=== PATIENT | male | born 1950 | race Caucasian/White ===

== ENCOUNTER 2018-04-05 22:11 | Emergency (ER) | payer BC, OTHER ==
[~2018-04-05] VITALS: Ht 182.9 cm; Wt 100.0 kg
[~2018-04-05 22:11] MED LIST: CMD5 PO; CMD75 PO; DILT120T8 PO; FRS/40 PO; INSDGI SQ; NASAL SPRAY NAE; POTA-327 PO; [UNRECOGNIZED DRUG - CODE] PO
[2018-04-05 22:22] VITALS: TEMP 36.6; Ht 182.9 cm; Wt 100.0 kg
[2018-04-05] MEDS ORDERED: MoRPHine SULFATE 4 MG/ML 1 ML CARP\\VIAL IV STA (22:47)
[2018-04-05] MEDS ORDERED: MoRPHine SULFATE 4 MG/ML 1 ML CARP\\VIAL ONE (22:49)
[2018-04-05] MEDS ORDERED: MoRPHine SULFATE 10 MG/ML CARP/VIAL IV STA (23:08)
[2018-04-05] MEDS ORDERED: GLC500 PO (23:08)
[2018-04-05] MEDS ORDERED: DIAZEPAM INJ 5 MG/ML 2 ML CARP IV STA (23:08)
[2018-04-05] MEDS ORDERED: INSU1INJ32 SQ (23:09)
[2018-04-05] MEDS ORDERED: POTA10TA33 PO (23:09)
[2018-04-05] MEDS ORDERED: SIMV-151 PO (23:09)
[2018-04-05] MEDS ORDERED: LNX25 PO (23:09)
[2018-04-05] MEDS ORDERED: METO-217 PO (23:09)
[2018-04-05] MEDS ORDERED: CANA1TAB3 PO (23:09)
[2018-04-05] MEDS ORDERED: TPRSR/50 PO (23:09)
[2018-04-05] MEDS ORDERED: XRL20 PO (23:09)
[2018-04-05] MEDS ORDERED: DIAZEPAM 5 MG/ML INJ 10ML VIAL ONE (23:20)
[2018-04-06] MEDS ORDERED: MoRPHine SULFATE 10 MG/ML CARP/VIAL IV STA (03:20)
[2018-04-06] MEDS ORDERED: DIAZEPAM INJ 5 MG/ML 2 ML CARP IV STA (03:20)
[2018-04-06] MEDS ORDERED: MoRPHine SULFATE 2 MG/ML CARP ONE (03:24)
[2018-04-06] MEDS ORDERED: MoRPHine SULFATE 4 MG/ML 1 ML CARP\\VIAL ONE (03:24)
[2018-04-06] MEDS ORDERED: DIAZEPAM 5MG TAB PO STA (04:10)
[2018-04-06] MEDS ORDERED: DEXAMETHASONE **PF** INJ 10 MG/ML VIAL IV ONE (04:15)
[2018-04-06] MEDS ORDERED: OXYCODONE IR HOME PACK PO ONE (04:15)
[2018-04-06] MEDS ORDERED: METH4PAK PO (04:31)
[2018-04-06] MEDS ORDERED: DIAZ-165 PO (04:31)
[2018-04-06] MEDS ORDERED: OXYC-737 PO (04:31)
--- NOTE | 2018-04-06 04:31 | EMERGENCY ROOM VISIT NOTE ---
History Report prepared by Aashish: Linda Alvarado Under the Supervision of: Dr. Ti Tam M.D. First contact with patient: 23:00 Chief Complaint: BACK PAIN Stated Complaint: BACK PAIN, RIGHT SIDE, CAN'T WALK History of Present Illness The patient is a 68 year old male who presents to the Emergency Room with complaints of worsening back pain starting 2 days ago. The patient states that he has a history of back surgery done by Dr. Mejía. 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 He reports that he drove his side by side up the hill which was extremely bumpy to where they were getting out of the fence. He states that he did a little work on the fence before heading back down. He reports that the next morning, again the cows had gotten out. He reports that he then added a line of fence at the bottom so they couldn't crawl out from underneath. The patient states that he had just got done when the back pain came on suddenly worse. He states that it continued to get worse as the day went on. He reports that 6 hours ago the pain was so bad he was unable to walk after standing up. He states that the pain is along his lower right side and radiates towards the middle of his back. He states that the pain is worse with movement. He reports that he has had difficulty walking because his right leg has been weak from the pain. The patient notes that he had to lift his leg to get into the car to come to the ED. He notes that he has been taking Tylenol and Aleve with no relief. The patient denies rash, fever, right foot pain, pain in the right lower leg, chills, abdominal pain, headache, chest pain, neck pain , incontinence, and recent falls. The patient notes that he has a history of atrial fibrillation and Diabetes. He notes that his sugars have been fine and that he takes Xarelto. Source of History: patient Onset: 2 days ago Position: back Quality: other (radiating) Timing: worsening Modifying Factors (Worsening): movement Associated Symptoms: + weakness, No fevers, No chills, No headache, No neck pain, No chest pain, No abdominal pain, No rash Note: The patient complains of difficulty walking. The patient denies right foot pain , pain in the right lower leg, and incontinence. Review of Systems See HPI for pertinent positives & negatives. A total of 10 systems reviewed and were otherwise negative. Past Medical & Surgical Medical Problems: (1) Diabetes Surgical Problems: (1) History of back surgery Family History No pertinent family history Social History Smoking Status: Never Smoker Marital Status: Housing Status: lives with family Current/Historical Medications Scheduled Canagliflozin (Invokana), 300 MG PO DAILY Digoxin (Digoxin), 0.25 MG PO DAILY Insulin Degludec (Tresiba Flextouch), 32 UNITS SQ QPM Metformin HCl (Metformin HCl), 500 MG PO BID Methylprednisolone (Medrol Dosepak), 1 PKT PO UD Metoprolol Succinate (Metoprolol Succinate ER), 100 MG PO QAM Metoprolol Succinate (Toprol Xl), 50 MG PO QPM Potassium Chloride (Potassium Chloride Sr), 20 MEQ PO DAILY Rivaroxaban (Xarelto), 20 MG PO QPM Simvastatin (Simvastatin), 20 MG PO DAILY Scheduled PRN Diazepam (Valium), 5-10 MG PO Q6H PRN for Muscle Spasms Furosemide (Lasix), 40 MG PO QAM PRN for EDEMA Oxycodone Immediate Rel Tab (Roxicodone Ir), 1-2 TAB PO Q4H PRN for Severe Pain Allergies Coded Allergies: No Known Allergies (Verified , 04/28/15) Physical Exam Vital Signs Date Time Temp Pulse Resp B/P (MAP) Pulse Ox O2 Delivery O2 Flow Rate FiO2 04/06/18 04:57 84 18 132/77 97 Room Air 04/06/18 03:29 81 18 135/87 95 Room Air 04/06/18 02:41 94 Nasal Cannula 2.0 04/06/18 02:40 89 Room Air 04/06/18 02:35 83 18 109/73 97 Room Air 04/06/18 01:47 88 18 133/78 96 Room Air 04/06/18 01:31 89 97 04/06/18 01:16 89 98 04/06/18 01:01 87 94 Nasal Cannula 2.0 04/06/18 00:46 91 87 Room Air 04/06/18 00:31 88 90 04/05/18 23:31 99 87 04/05/18 23:26 84 14 121/85 96 Room Air 04/05/18 23:11 71 96 04/05/18 22:22 36.6 72 18 130/82 98 Room Air Physical Exam GENERAL: Patient is in severe to moderate distress. Very uncomfortable appearing. Periodically wincing. EYES: No scleral icterus, unremarkable pupils. ENT: Mucous membranes moist, no nasal congestion. NECK: No masses appreciated, no meningismus, trachea is midline. RESPIRATORY: No dyspnea. Clear to auscultation and equal bilaterally. No wheeze , no rhonchi. CARDIOVASCULAR: Regular rate and rhythm. No murmurs, rubs, gallops appreciated. GASTROINTESTINAL: Abdomen soft, nontender, no peritonitis. Bowel sounds positive. No masses appreciated. BACK: Tenderness over the right lower paraspinous muscles. No midline tenderness , no CVA tenderness EXTREMITIES: The patient is unable to move his right leg secondary to pain, but does seem to be able to move muscles somewhat. Pulses are intact. No cyanosis, no edema. NEUROLOGIC: Alert and oriented, no acute motor or sensory deficits, no focal weakness, cranial nerves grossly intact. SKIN: No rash, no jaundice, no diaphoresis. Medical Decision & Procedures ER Provider Diagnostic Interpretation: X ray results are stated below per my interpretation: 3 View Lumbar: The results were interpreted by me. L2- sacrum hardware intact. No fracture. No dislocation. Stat Rad Radiology results and stated below per my review and radiologist interpretation: MRI L SPINE : Findings: Postoperative changes with posterior instrumentation S1 L4 L3 L2 with pedicle screws and posterior laminectomies at L3 L4-L5. Degenerative changes are noted of the disc spaces without evidence of disc herniation. Minimal disc bulge noted at L1-2.. No evidence for marrow edema to suggest fracture. Normal appearance to the cauda equina. No evidence for significant canal effacement. No evidence for significant neural foraminal effacement. Impression: Postoperative changes. No acute abnormality. No evidence for canal effacement. The cauda equina is unremarkable. Radiologist: Pankaj Mercado MD Laboratory Results Test 04/06/18 01:47 Bedside Glucose 126 mg/dl (70-99) Laboratory results as reviewed by me. Medications Administered Medications (Trade) Dose Ordered Sig/Tamra Route Start Time Stop Time Status Last Admin Dose Admin Morphine Sulfate (MoRPHine SULFATE INJ) 4 mg NOW STAT IV 04/05/18 22:47 04/05/18 22:49 DC 04/05/18 22:50 4 MG Diazepam (Valium Inj) 5 mg NOW STAT IV 04/05/18 23:08 04/05/18 23:14 DC 04/05/18 23:27 5 MG Morphine Sulfate (MoRPHine SULFATE INJ) 6 mg NOW STAT IV 04/05/18 23:08 04/05/18 23:14 DC 04/05/18 23:22 6 MG Morphine Sulfate (MoRPHine SULFATE INJ) 6 mg NOW STAT IV 04/06/18 03:20 04/06/18 03:21 DC 04/06/18 03:20 6 MG Diazepam (Valium Inj) 5 mg NOW STAT IV 04/06/18 03:20 04/06/18 03:21 DC 04/06/18 03:20 5 MG Oxycodone HCl (Roxicodone Immediate Rel 5MG Home Pack) 1 homepack UD ONCE PO 04/06/18 04:15 04/06/18 04:16 DC 04/06/18 04:56 1 HOMEPACK Diazepam (Valium Tab) 10 mg NOW STAT PO 04/06/18 04:10 04/06/18 04:11 DC 04/06/18 04:57 10 MG Dexamethasone Sodium Phosphate (Dexamethasone Inj Pf) 10 mg NOW ONCE IV 04/06/18 04:15 04/06/18 04:16 DC 04/06/18 04:57 10 MG ED Course 2247: Ordered Morphine Sulfate 4 mg IV. 2301: The patient was evaluated in room B9. A complete history and physical exam was performed. 2308: Ordered Morphine Sulfate 6 mg IB, Valium Inj 5 mg IV. 2348: I reevaluated the patient and he is feeling much better. He still has severe pain with minor movements of his leg. 0319: Upon reevaluation, the patient has return of pain. 0320: Ordered Valium Inj 5 mg IV, Morphine Sulfate 6 mg IV. 0409: Reevaluated the patient and he is feeling much better. Discussed results and discharge instructions: He verbalized understanding and agreement. I discussed the risks and benefits of the use of steroids with him. The patient is ready for discharge. 0410: Ordered Valium Tab 10 mg PO. 0415: Ordered Dexamethasone Sodium Phosphate 10 mg IV, Oxycodone HCl 1 homepack PO. Medical Decision Differential: Musculoskeletal, Disc Herniation, Fracture, Cord Compression, Discitis, Infectious, Aortic Pathology, Renal Colic, Acute Exacerbation of Chronic Pain, Sciatica, Cauda Equina, amongst other pathologies entertained. 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 No urinary/bowel control issues though so much pain difficult to determine is significant weakness. No sensation deficits. Given level of pain and his history felt no option but to get MRI to further evaluation once xrays revealed no fractures nor hardware issue. Given several round IV narc/benzos to get pain under control. MRI reveals no acute findings and normal post operative findings. Suspect severe muscle spasm leading to nerve discomfort. Given level of pain and radiation I do feel that steroids reasonable with very strict DMII instructions. He has excellent pulses in leg, no abdominal pain, much improved back pain, no rash and is stable at time of discharge. Symptoms requiring return reviewed at length with patient and family. He is adamant about going home and we discussed he can return if he feels he can't keep pain under control. Medication Reconcilliation Current Medication List: was personally reviewed by me Blood Pressure Screening Patient's blood pressure: Normal blood pressure Blood pressure disposition: Did not require urgent referral Impression Primary Impression: Acute low back pain with right-sided sciatica Additional Impression: Lumbar paraspinal muscle spasm Scribe Attestation The scribe's documentation has been prepared under my direction and personally reviewed by me in its entirety. I confirm that the note above accurately reflects all work, treatment, procedures, and medical decision making performed by me. Departure Information Dispostion Home / Self-Care Prescriptions Methylprednisolone (MEDROL DOSEPAK) 4 Mg Vinny 1 PKT PO UD for 6 Days, #1 PKT Prov: Ti Tam M.D. 04/06/18 Oxycodone Immediate Rel Tab (ROXICODONE IR) 5 Mg Tab 1-2 TAB PO Q4H Y for Severe Pain, #20 TAB Prov: Ti Tam M.D. 04/06/18 Diazepam (Valium) 5 Mg Tab 5-10 MG PO Q6H Y for Muscle Spasms, #20 TAB Prov: Ti Tam M.D. 04/06/18 Referrals Jori Amin D.O. (PCP) Forms HOME CARE DOCUMENTATION FORM, IMPORTANT VISIT INFORMATION Patient Instructions ED Low Back Pain Injury, My [facility] Additional Instructions You have received a narcotic and benzodiazepine pain medication prescriptions. These medications may cause drowsiness and should not be used with other sedative medications. Do not drive, drink alcohol, perform dangerous activities , nor make important decisions after taking these medications. senior living use or inappropriate use may lead to addiction. Steroids may increase your blood sugars so monitor them closely. Problem Qualifiers
[2018-04-06 04:57] VITALS: BP 132/77; PULSE 84; O2SAT 97
--- NOTE | 2018-04-06 06:12 | DIAGNOSTIC IMAGING REPORT ---
LUMBAR SPINE 2 OR 3 VIEWS CLINICAL HISTORY: low back pain s/p lifting pain COMPARISON STUDY: No previous studies for comparison. FINDINGS: Extensive laminectomy and fusion from L2 through S1. Multiple disc spaces are present. Moderate degenerative disc change throughout. No acute bony abnormality. Nonobstructive bowel pattern. IMPRESSION: Degenerative and postoperative change. No acute process. The above report was generated using voice recognition software. It may contain grammatical, syntax or spelling errors. Electronically signed by: Neto Truong M.D. 04/06/2018 6:11 AM Dictated Date/Time: 04/06/2018 6:10 AM
--- NOTE | 2018-04-06 06:37 | DIAGNOSTIC IMAGING REPORT ---
LUMBAR SPINE W/O CONTRAST HISTORY: Pain low back pain, unable to move right leg very well TECHNIQUE: Multiplanar multisequence MRI of the lumbar spine was performed without the use of contrast. COMPARISON: None. FINDINGS: For the purpose of the report the L5-S1 disc space will be located on axial image 2125. Findings of posterior laminectomy and fusion from L2 through S1. Moderate degenerative disc changes noted throughout. Small fluid pocket posterior to L3 measuring 2 x 1 cm. This is most likely postoperative. L1-L2: Mild multifactorial narrowing of the spinal canal. No significant compromise of the neuroforamina. L2-L3: No significant central canal or neural foraminal narrowing. L3-L4: No significant central canal or neural foraminal narrowing. L4-L5: No significant central canal or neural foraminal narrowing. L5-S1: No significant central canal or neural foraminal narrowing. IMPRESSION: 1. Operative changes consistent with posterior laminectomy and fusion from L2 through S1. 2. Small 2 x 1 cm fluid pocket posterior to the spinal canal at L3 most likely resembling a small post procedural seroma. 3. Mild multifactorial narrowing of the spinal canal at L1-L2. The above report was generated using voice recognition software. It may contain grammatical, syntax or spelling errors. Electronically signed by: Neto Truong M.D. 04/06/2018 6:36 AM Dictated Date/Time: 04/06/2018 6:33 AM
== END 2018-04-06 05:02 | disposition home or self-care (01) ==
LOC: C.EDB 22:12
DX: M54.41 Lumbago with sciatica, right side (principal); M62.830 Muscle spasm of back; E11.9 Type 2 diabetes mellitus without complications

== ENCOUNTER 2021-09-04 05:29 | Inpatient (IN) ==
--- NOTE | 2021-08-24 12:11 | Anesthesiology Consultation ---
Date of Service August 24, 2021 Assessment & Plan (1) Encounter for pre-operative examination: Chart Review Chart Review: Acceptable Risk for Surgery (pending preop Covid testing results ) and Patient NOT seen in Pre Admission Testing - Check BSG AM DOS -Discussed EKG and ECHO with Dr. Kay- patient's functional status can be reassessed DOS- patient can proceed as scheduled at this time. Medical necessity letter 08/23/21= Patient presents to our office with significant neurologic dysfunction... Has a history significant for an L2-S1 decompression and fusion and over the last 2 months has had difficulties just standing and walking... When evaluated in office less than 1 week agowas noted to have significant weakness and clonus on exam. Films displayed severe spinal stenosis with distal cord compression at T12-L1 above the fusion. Surgically we have recommending decompressing the T12-L1 area and continuation of fusion from T12 back down to L2. We have deemed this medically necessary as patient is d eclining neurologically, has significant spinal cord compression. Failure to proceed with surgery is likely to result in severe neurologic decline which may be permanent. (Dr Cotton aware and patient is approved to proceed as scheduled pending hospital staffing/bed availability) Per nursing assessment 08/22/2021, patient denies any recent travel. No known Covid infection in the past 90 days. Patient is fully vaccinated for Covid. No known Covid positive exposures or Covid related symptoms. Preop Covid testing scheduled 08/31/21= will await results Last seen by cardio 02/01/21= Seen for follow up visit. EKG done at cardiac visit. BP reasonably controlled. Continue current medications. History Surgery Operation Date: 09/04/21 09:20 Proposed Procedures p T12-L1 Decompression, T12-L2 Fusion, L2 Removal of Screws, Spinal Cord Monitoring - Robb Mejía DO Height/Weight Height: 6 ft Weight: 88.451 kg Allergies Allergy/AdvReac Type Severity Reaction Status Date / Time No Known Allergies Allergy Verified 08/22/21 12:53 Medications Home Medications Medication Instructions Recorded Confirmed Last Taken digoxin 250 mcg (0.25 mg) tablet 250 mcg PO QAM 08/22/21 08/22/21 Unknown empagliflozin 25 mg tablet 25 mg PO QAM 08/22/21 08/22/21 Unknown (Jardiance) insulin glargine 100 unit/mL (3 22 unit SUBCUT QPM 08/22/21 08/22/21 Unknown mL) subcutaneous pen (Basaglar SriramikPen U-100 Insulin) metformin 500 mg tablet 500 mg PO BID 08/22/21 08/22/21 Unknown metoprolol succinate 50 mg 50 mg PO UD 08/22/21 08/22/21 Unknown tablet,extended release 24 hr potassium chloride 10 mEq 10 meq PO QAM 08/22/21 08/22/21 Unknown tablet,extended release rivaroxaban 20 mg tablet (Xarelto) 20 mg PO QPM 08/22/21 08/22/21 Unknown semaglutide (Ozempic) 0.5 mg SUBCUT WK 08/22/21 08/22/21 Unknown simvastatin 20 mg tablet 20 mg PO QPM 08/22/21 08/22/21 Unknown Past Medical History Medical History Arthritis Atrial fibrillation REASON FOR XARELTO>FOLLOWED BY DR. STERLING Diabetes mellitus, type 2 History of cardioversion "SEVERAL TIMES" History of kidney stones Hyperlipidemia Hypertension Spinal stenosis Past Family History Family History Other No family history of adverse response to anesthesia Past Surgical History Surgical History Fusion of spine LUMBAR X 2 CERVICAL X 1 (GOOD ROM) History of appendectomy History of cardiac cath "A WHILE AGO" NO STENTS History of cataract surgery RT/LEFT History of colonoscopy History of herniorrhaphy X 3 History of lithotripsy History of revision of total knee arthroplasty LEFT History of tooth extraction History of total knee replacement LEFT X 2 Social History Smoking Status: Never smoker Hx Alcohol Use: Yes alcohol intake frequency: holidays/special occasions only substance use type: does not use Testing Laboratory Results 08/22/21= WBC: 13.1 H/H: 15.0/46.9 PLATELETS: 283 SODIUM: 140 POTASSIUM: 4.1 CHLORIDE: 105 CO2: 27 BUN: 17 CREATININE: 0.3 GLUCOSE: 203 PT: 10.8 PTT: 30 INR: 1.07 UA: Negative Electrocardiogram Date: 02/01/21 Atrial fibrillation with normal mean ventricular response at 91bpm. Low voltage QRS in precordial leads. Slight inferior repolarization disturbance, consider ischemia, LV overload or specific change. Echocardiogram Date: 03/02/21 EF: 55% LV Function: normal RWMA: + none Other Findings: no LVH Valvular Disease: + MR (mild ) Moderate left and right atrial enlargement. Mild TR. Borderline pulmonary HTN. Estimated PASP 35-40mmHg. Diastolic function is indeterminate due to atrial fibrillation.
[2021-09-04] MEDS ORDERED: LR 15ML/HR IV SCH (06:00)
[2021-09-04] MEDS ORDERED: GABAPENTIN 300 MG CAP PO SCH (06:00)
[2021-09-04] MEDS ORDERED: ceFAZolin 2000MG 2,000 MG/15 ML SYR IV SCH (06:00)
[2021-09-04] MEDS ORDERED: ACETAMINOPHEN 500 MG TAB PO SCH (06:00)
[2021-09-04] MEDS ORDERED: CeleBREX 200 MG CAP PO SCH (06:00)
[2021-09-04] MEDS ORDERED: HYDROmorphone INJ 1 MG/ML SYRINGE IV PRN ×2 (06:54→12:16)
[2021-09-04] MEDS ORDERED: ONDANSETRON INJ 2 MG/ML 2 ML VIAL IV PRN ×2 (06:54→12:16)
[2021-09-04] MEDS ORDERED: PHENYLEPHRINE 100MCG/ML 5ML SYR IV PRN (06:54)
[2021-09-04] MEDS ORDERED: LABETALOL HCL IV 5 MG/ML 20ML IV PRN (06:54)
[2021-09-04] MEDS ORDERED: ePHEDrine sulfate 50 MG/ML AMP IV PRN (06:54)
[2021-09-04] MEDS ORDERED: fentaNYL citrate 100 MCG/2 ML VIAL IV PRN (06:54)
[2021-09-04] MEDS ORDERED: ATROPINE SULFATE 0.1 MG/ML 10ML SYR IV PRN (06:54)
[2021-09-04] MEDS ORDERED: MEPERIDINE HCL 25 MG/ML CARP/VIAL IV PRN (06:54)
[2021-09-04] MEDS ORDERED: BUPIVACAINE 0.5 % 5 MG/1 ML MPF 30ML VIAL ONE (07:08)
[2021-09-04] MEDS ORDERED: EPINEPHrine INJ 1 MG/ML AMP ONE (07:08)
[2021-09-04] MEDS ORDERED: MIDAZOLAM HCL 1 MG/ML 2ML VIAL ONE (07:09)
[2021-09-04] MEDS ORDERED: fentaNYL citrate 100 MCG/2 ML VIAL ONE ×2 (07:09)
--- NOTE | 2021-09-04 07:31 | History & Physical Bridge Note ---
Date of Service September 04, 2021 History & Physical Bridge Note I have examined the patient, reviewed the History & Physical and in the interval since the performance of the History & Physical I have noted the following changes of clinical significance: no changes noted
--- NOTE | 2021-09-04 07:32 | History & Physical Report ---
Date of Service September 04, 2021 Assessment & Plan (1) Lumbar stenosis with neurogenic claudication: Plan: T12-L1 decompression, T12-L2 fusion, L2 removal of screws History of Present Illness Chief Complaint: Back and bilateral leg pain Primary Care Provider: NO PCP This is a 71-year-old male well-known to me the presents with marked clinical status with worsening back and bilateral leg pain. After failing course of nonoperative care is here for surgical intervention. Allergies Allergy/AdvReac Type Severity Reaction Status Date / Time No Known Allergies Allergy Verified 09/04/21 05:40 Home Medications Medication Instructions Recorded Confirmed Type digoxin 250 mcg (0.25 mg) tablet 250 mcg PO QAM 08/22/21 09/04/21 History empagliflozin 25 mg tablet 25 mg PO QAM 08/22/21 09/04/21 History (Jardiance) insulin glargine 100 unit/mL (3 22 unit SUBCUT QPM 08/22/21 09/04/21 History mL) subcutaneous pen (Basaglar KwikPen U-100 Insulin) metformin 500 mg tablet 500 mg PO BID 08/22/21 09/04/21 History metoprolol succinate 50 mg 50 mg PO UD 08/22/21 09/04/21 History tablet,extended release 24 hr potassium chloride 10 mEq 10 meq PO QAM 08/22/21 09/04/21 History tablet,extended release rivaroxaban 20 mg tablet (Xarelto) 20 mg PO QPM 08/22/21 09/04/21 History semaglutide (Ozempic) 0.5 mg SUBCUT WK 08/22/21 09/04/21 History simvastatin 20 mg tablet 20 mg PO QPM 08/22/21 09/04/21 History Past Med/Surg History Medical History Arthritis Atrial fibrillation REASON FOR XARELTO>FOLLOWED BY DR. STERLING Diabetes mellitus, type 2 History of cardioversion "SEVERAL TIMES" History of kidney stones Hyperlipidemia Hypertension Spinal stenosis Surgical History Fusion of spine LUMBAR X 2 CERVICAL X 1 (GOOD ROM) History of appendectomy History of cardiac cath "A WHILE AGO" NO STENTS History of cataract surgery RT/LEFT History of colonoscopy History of herniorrhaphy X 3 History of lithotripsy History of revision of total knee arthroplasty LEFT History of tooth extraction History of total knee replacement LEFT X 2 Family History Other No family history of adverse response to anesthesia Social History Smoking Status: Never smoker Second Hand Exposure: Yes ( A CHILD); Hx Alcohol Use: Yes Preferred Language: Yoruba Heading Pinner Required: No Beliefs That Will Affect Care: None Current Living Situation: Spouse Feels Safe at Home: Yes Safety Concerns: Feels Safe At This Time Assistive Devices: Glasses Physical Exam Physical Exam: Patient is alert and oriented Heart regular in rhythm Lungs clear Results & Data ([facility]) Vital Signs (Past 12 Hours) Vital Signs Temp Pulse Resp BP Pulse Ox 09/04/21 05:48 36.5 C 92 H 18 146/85 H 99
[2021-09-04] MEDS ORDERED: HYDROmorphone INJ 2 MG/ML SYR/VIAL ONE (08:25)
[2021-09-04] MEDS ORDERED: ONDANSETRON INJ 2 MG/ML 2 ML VIAL ONE (08:29)
[2021-09-04] MEDS ORDERED: ROCURONIUM BROMIDE 10 MG/ML 5 ML VIAL IV ONE (08:29)
[2021-09-04] MEDS ORDERED: ePHEDrine sulfate 50 MG/ML SYR ONE (08:29)
[2021-09-04] MEDS ORDERED: LIDOCAINE 2% 2 ML VIAL/AMP(20MG/ML) INFIL ONE (08:29)
[2021-09-04] MEDS ORDERED: PROPOFOL IV EMULSION 10 MG/ML 20 ML VIAL IV ONE (08:29)
[2021-09-04] MEDS ORDERED: GLYCOPYRROLATE 0.2 MG/ML VIAL ONE (08:29)
[2021-09-04] MEDS ORDERED: PHENYLEPHRINE 100MCG/ML 5ML SYR ONE (08:29)
[2021-09-04] MEDS ORDERED: LARYING-O-JET KIT (LTA) ONE (08:29)
[2021-09-04] MEDS ORDERED: DEXAMETHASONE SOD INJ 4 MG/ML VIAL ONE (08:29)
[2021-09-04] MEDS ORDERED: NEOSTIGMINE METHYLSULFATE 1 MG/ML 10ML VIAL ONE (08:29)
--- NOTE | 2021-09-04 10:12 | Fluoroscopy Report ---
FL lumbar spine 2-3V CLINICAL HISTORY: T12-L1 DECOMPRESSION T12-L2 FUSION L2 SCREW REMOVAL TECHNIQUE: 2 views were obtained with the C-arm in the OR with the above procedure. Total fluoroscopy time was 28.9 seconds. Total skin dose was 22.75 mGy. Comparison: None available at the time of this dictation. FINDINGS/IMPRESSION: Intraoperative images of T12-L1 decompression, T12 L2 fusion, removal of L2 scre w were obtained. Please correlate with intraoperative fluoroscopy and operative report. ACT 112: Negative or not required by law. Electronically signed by: Rayo Salas M.D. 09/04/2021 10:11 AM
--- NOTE | 2021-09-04 10:12 | Operative Report ---
Post Operative Report Pre & Post Diagnosis Operation Date: 09/04/21 07:30 Pre-Op Diagnosis: Thoracic spinal stenosis with myelopathy Post-Op Diagnosis: Same I identified the patient and participated in the time-out.: Yes Procedure Operation Date: 09/04/21 07:30 Actual Procedures #1 Removal of posterior instrumentation pedicle screw and connector at L2. #2 exploration of fusion L2-L3. #3 thoracolumbar decompression T12-L1 L1-L2. #4 posterior spinal fusion T12-L2. #5 placement posterior instrumentation T12-L2. #6 interbody fusion L1-L2. #7 placement peek cage 8 x 26 mm at L1-L2. #8 placement locally harvested morselized autograft in the posterior gutters. #9 placement infuse collagen sponge Surgeon Robb Mejía, DO [employer]ic , and master graft in the posterior lateral gutters and I factor in the int Estimated Blood Loss 130 Findings Consistent with Post-Op Diagnosis Specimens None Indications This is a 71-year-old male who presents with evidence of progressive thoracic spinal stenosis and myelopathy. Subsequently he is here for the above-mentioned procedure. Description of Procedure Patient was met with identified informed consent obtained. Patient was then taken to the operative suite underwent intubation placed in a prone position the Abhi table atop the Preston frame. All bony prominences well-padded eyes inspected to ensure no external pressure placed upon them. This point the thoracolumbar spine was prepped and draped in a sterile fashion. Sharp dissection with the assistance of Bovie cautery performed down to and exposing the lamina and transverse processes of T12-L1 and instrumentation at L2-L3. Then proceeded move the end caps and connector of the L2 pedicle screw. It was removed out difficulty. Explore the fusion mass noting it to be mature and intact. Then performed a complete laminectomy of L1 and T12 from a caudal cephalad fashion addressing severe spinal stenosis. By way of a transforaminal portion left complete discectomy of L1-L2 was then performed endplates curetted to subcortically bone and a 8 x 26 mm peek cage filled I factor tapped in position. Pedicle screws were then placed in T12-L1 pedicles and using a barrel connector leah was connected to the previous leah and locked into place. Transverse processes of T12-L1 and L2 were then burred to subcortically bone. Infuse collagen sponge master graft and local autograft was placed in the posterior gutters. 15 round TREASURE drain inserted. The incision was then closed with 1 Vicryl fascia 2-0 Vicryl subcutaneously and 4 Monocryl for final skin closure. Steri-Strip sterile dressings placed. Patient will continue PACU stable condition. Please note spinal cord monitoring was utilized at the procedure no changes noted. I attest to the content of the Intraoperative Record and any orders documented therein. Any exceptions are noted below.
--- NOTE | 2021-09-04 10:41 | Anesthesiology Progress Note ---
Date of Service September 04, 2021 Anesthesia Post Procedure Vital Signs Vital Signs: Temp Pulse Pulse Resp BP Pulse Ox 09/04/21 10:25 90 14 116/80 98 09/04/21 10:15 36.2 C L 90 19 117/76 98 09/04/21 05:48 36.5 C 92 H 18 146/85 H 99 Transfer of Care Handoff Completed per policy Notes Mental Status: alert / awake / arousable Patient Amnestic to Procedure: Yes Nausea / Vomiting: adequately controlled Pain: adequately controlled Airway Patency, RR, SpO2: stable & adequate BP & HR: stable & adequate Hydration State: stable & adequate Anesthetic Complications: no major complications apparent and Pt Satisfied with anesthetic care
[2021-09-04] MEDS ORDERED: INFLUENZA VACCINE HIGH DOSE PF 65+ 0.7 ML SYR IM ONE (12:15)
[2021-09-04] MEDS ORDERED: diphenhydrAMINE Capsule 25 MG CAP PO PRN (12:16)
[2021-09-04] MEDS ORDERED: hydrOXYzine HCl 25 MG TAB PO PRN (12:16)
[2021-09-04] MEDS ORDERED: DO NOT ADMINISTER FLU VACCINE PRN (12:16)
[2021-09-04] MEDS ORDERED: ACETAMINOPHEN 1,000 MG/100 ML VIAL IV PRN (12:16)
[2021-09-04] MEDS ORDERED: FAMOTIDINE 20 MG TAB PO PRN (12:16)
[2021-09-04] MEDS ORDERED: bisacodyL 10 MG SUPP PR PRN (12:16)
[2021-09-04] MEDS ORDERED: ACETAMINOPHEN 500 MG TAB PO PRN (12:16)
[2021-09-04] MEDS ORDERED: MAGNESIUM HYDROXIDE SUSP 30 ML UDC PO PRN (12:16)
[2021-09-04] MEDS ORDERED: LORazepam 0.5 MG TAB PO PRN (12:16)
[2021-09-04] MEDS ORDERED: HYDROmorphone INJ 0.5 MG/0.5 ML SYR IV PRN (12:16)
[2021-09-04] MEDS ORDERED: LORazepam 0.5 MG/1 ML VIAL IV PRN (12:16)
[2021-09-04] MEDS ORDERED: NALOXONE HCL 0.4 MG/1 ML VIAL/CARP IV PRN (12:16)
[2021-09-04] MEDS ORDERED: DO NOT ADMINISTER PNEUMOCOCCAL VACCINE PRN (12:16)
[2021-09-04] MEDS ORDERED: PHARMACY GLYCEMIC MGMT CONSULT PRN (12:16)
[2021-09-04] MEDS ORDERED: PROMETHAZINE HCL 12.5 MG in SODIUM CHLORIDE 0.9% 50 ML IV PRN (12:16)
[2021-09-04] MEDS ORDERED: SOD PHOSPHATE/SOD BIPHOSPHATE ENEMA 132 ML BTL PR PRN (12:16)
[2021-09-04] MEDS ORDERED: ONDANSETRON 4 MG OD TAB PO PRN (12:16)
[2021-09-04] MEDS ORDERED: METOCLOPRAMIDE HCL INJ 5 MG/ML 2 ML VIAL IV PRN (12:16)
[2021-09-04] MEDS ORDERED: ALUMINUM/MAGNESIUM SUSP 30 ML UDC PO PRN (12:16)
--- NOTE | 2021-09-04 13:29 | Hospitalist Consultation ---
Date of Consultation September 04, 2021 Assessment & Plan (1) Lumbar stenosis with neurogenic claudication: - POD#0 T12-L1 decompression, T12-L2 fusion, L2 screw removal by Dr. Mejía - activity and wound care orders as per ortho - pain control with bowel regimen - PT/OT - monitor H/H for acute blood loss anemia and transfuse blood products PRN - EBL 130 cc (2) Atrial fibrillation: -Rate controlled on digoxin and metoprolol -Anticoagulated on Xarelto -resume at the discretion of spine Ortho (3) Diabetes: -Unknown HgbA1c -Glycemic pharmacy consulted by spine Ortho (4) DVT prophylaxis: -TEDs/SCDs as per spine Ortho Thank you for this consultation. We will follow the patient with you during their hospital stay. You can reach a member of the [facility]ist Team 25/03 via the [facility] role in [place] Text. Supervising Physician Co-Signing Physician Notes And is a 71-year-old male with history of atrial fibrillation on chronic anticoagulation with Xarelto, diabetes mellitus and other medical problems was seen in examined postop after having lumbar surgery by Dr. Mejía. Patient is doing well postoperatively. His numbness, tingling of lower extremities resolved post surgery. Back pain at surgical site is controlled. Denies any chest pain, shortness of breath, dizziness, nausea, abdominal pain. On exam patient is moderately built and nourished, no apparent distress, normocephalic atraumatic, EOMI, normal breath sounds, clear to auscultation, irregularly irregular rhythm, no murmur, no pedal edema, abdomen soft, nontender, normal bowel sounds,Back/: Surgical site in dressing, alert, awake, oriented, grossly no focal deficits. Patient is consulted for postop medical management. Agree with insulin therapy for diabetes management. Monitor blood glucose levels. DVT prophylaxis as per primary team. Continue bowel regimen to prevent const ipation. Monitor CBC to rule out postoperative anemia. Pain control, PT OT as per primary team. Continue digoxin, metoprolol for rate control for atrial fibrillation. Resume Xarelto as soon as possible once cleared by orthopedics. I personally reviewed the record. Patient is interviewed and examined at bedside. Patient's care is coordinated with Sanjana Tamez NP. Please refer to the documentation above for details of patient's presentation and for discussion of other issues. History of Present Illness Reason for Consultation: Postop medical management Requesting Physician: Dr. Mejía Attending Physician: Dr. Serrano History of Present Illness 71-year-old male with PMH atrial fibrillation anticoagulated on Xarelto, DM type II, HTN, and other problems listed below who is status post T12-L1 decompression, T12-L2 fusion, L2 screw removal today by Dr. Mejía. Postoperatively, the patient is doing well. He reports some incisional discomfort however pain is overall well controlled. No numbness or tingling or weakness to lower extremities. Denies chest pain or shortness of breath. No abdominal pain or nausea. Moore is in place draining clear yellow urine. Allergies Allergy/AdvReac Type Severity Reaction Status Date / Time No Known Allergies Allergy Verified 09/04/21 05:40 Home Medications Medication Instructions Recorded Confirmed Type digoxin 250 mcg (0.25 mg) tablet 250 mcg PO QAM 08/22/21 09/04/21 History empagliflozin 25 mg tablet 25 mg PO QAM 08/22/21 09/04/21 History (Jardiance) insulin glargine 100 unit/mL (3 22 unit SUBCUT QPM 08/22/21 09/04/21 History mL) subcutaneous pen (Basaglar KwikPen U-100 Insulin) metformin 500 mg tablet 500 mg PO BID 08/22/21 09/04/21 History metoprolol succinate 50 mg 50 mg PO UD 08/22/21 09/04/21 History tablet,extended release 24 hr potassium chloride 10 mEq 10 meq PO QAM 08/22/21 09/04/21 History tablet,extended release rivaroxaban 20 mg tablet (Xarelto) 20 mg PO QPM 08/22/21 09/04/21 History semaglutide (Ozempic) 0.5 mg SUBCUT WK 08/22/21 09/04/21 History simvastatin 20 mg tablet 20 mg PO QPM 08/22/21 09/04/21 History oxycodone 5 mg tablet 5 mg PO Q6H PRN #30 tab 09/04/21 Rx tramadol 50 mg tablet 50 mg PO Q6H PRN #30 tab 09/04/21 Rx Patient History Medical History Arthritis Atrial fibrillation REASON FOR XARELTO>FOLLOWED BY DR. STERLING Diabetes mellitus, type 2 History of cardioversion "SEVERAL TIMES" History of kidney stones Hyperlipidemia Hypertension Spinal stenosis Surgical History Fusion of spine LUMBAR X 2 CERVICAL X 1 (GOOD ROM) History of appendectomy History of cardiac cath "A WHILE AGO" NO STENTS History of cataract surgery RT/LEFT History of colonoscopy History of herniorrhaphy X 3 History of lithotripsy History of revision of total knee arthroplasty LEFT History of tooth extraction History of total knee replacement LEFT X 2 Family History Other No family history of adverse response to anesthesia Social History Smoking Status: Never smoker Second Hand Exposure: Yes ( A CHILD); Hx Alcohol Use: Yes Preferred Language: [place] [employer] Required: No Beliefs That Will Affect Care: None Current Living Situation: Spouse Feels Safe at Home: Yes Safety Concerns: Feels Safe At This Time Assistive Devices: Glasses and Walker Review of Systems Review of Systems: ROS per HPI, all other systems reviewed and negative Physical Exam Constitutional: WD/WN, vitals as above Eyes: PERRL, conjunctivae normal, anicteric sclerae ENMT: external ear and nose normal, oropharynx normal Respiratory: normal respiratory effort, lungs clear to auscultation Cardiovascular: Rate/Rhythm: regular rate and + irregularly irregular Vessels: normal peripheral pulses Extremities: no edema Gastrointestinal (Abdomen): normal bowel sounds, soft, nontender, no hepatosplenomegaly Musculoskeletal: no cyanosis or clubbing, extremities motor strength 5/5 S/p back surgery, pedal pushes and pull strong bilaterally, drain in place draining bloody drainage Skin: no rashes, warm and dry Neurologic: PERRL, EOMI, accommodation nl, no face palsy, no dysarthria Psychiatric: A+Ox3, euthymic affect Genitourinary: Moore in place draining clear yellow urine Results & Data Results & Data ([facility]) Vital Signs (Past 12 Hours) Vital Signs Temp Pulse Pulse Resp BP Pulse Ox 09/04/21 13:00 36.5 C 93 H 18 126/76 94 09/04/21 12:24 36.4 C L 92 H 18 129/72 92 01/03/22 12:00 36.8 C 95 H 18 128/79 92 09/04/21 11:52 36.4 C L 09/04/21 11:35 86 18 123/77 95 09/04/21 11:25 78 19 124/85 95 09/04/21 11:15 83 19 123/81 95 09/04/21 11:05 87 20 123/83 96 09/04/21 10:55 89 14 122/75 97 09/04/21 10:45 36.2 C L 87 15 119/74 94 09/04/21 10:35 92 H 12 118/84 92 09/04/21 10:25 90 14 116/80 98 09/04/21 10:15 36.2 C L 90 19 117/76 98 09/04/21 05:48 36.5 C 92 H 18 146/85 H 99
--- NOTE | 2021-09-04 13:57 | Pharmacy Report ---
Pharmacy Glycemic Short Note 2 - Date of Service September 04, 2021 - Glycemic Short BSG Results (Last 24 hours): 09/04/21 09/04/21 09/04/21 05:46 10:18 12:04 POC Glucose 97 92 122 H OUTPATIENT ANTIDIABETIC REGIMEN: * Metformin 500 mg PO BID * Jardiance 25 mg PO AM * Lantus 22 units SC PM * Ozempic 0.5 mg SC every Saturday * HbA1c pending ASSESSMENT: * 71 yo M admitted POD#0 s/p spinal fusion by Dr. Mejía. Pharmacy has been consulted to assist with inpatient glycemic management. Patient is ordered a clear liquid diet for the time being. Also received 12 mg of IV dexamethasone intraoperatively. * Pre-op BSG was 97 mg/dL. Post-op BSGs have been 92-122 mg/dL. * Hold off on giving any NPH given controlled BSGs and clear liquid diet. * Resume home Lantus dose this evening which should be enough to help cover steroid-induced hyperglycemia. * Targeting a goal of 110-140 mg/dL post-op to promote wound healing and prevent infection. * Novolog based on weight and stress of 2. Will get overnight checks for the first night. PLAN FOR INPATIENT GLYCEMIC CONTROL: * Hold outpatient oral diabetes medications * Basal insulin * Lantus 22 units SC HS * Bolus insulin * NovoLog per scale ACHS or Q6hrs while NPO * Goal Range: Low 110 mg/dL - High 140 mg/dL * Correction Factor: 25 mg/dL/unit * Nutritional / Prandial insulin per carb ratio of 1 unit per 9 grams CHO consumed PLAN FOR DISCHARGE: * To be determined
[2021-09-04] MEDS ORDERED: GLUCAGON FOR INJ 1 MG VIAL IM PRN (14:00)
[2021-09-04] MEDS ORDERED: DEXTROSE 50% 50 ML SYRINGE IV PRN (14:00)
[2021-09-04] MEDS ORDERED: GLUCOSE 10 TABS/TUBE PO PRN (14:00)
[2021-09-04] MEDS ORDERED: CARBOHYDRATES FOR HYPOGLYCEMIA PO PRN (14:00)
[2021-09-04] MEDS ORDERED: GLUCOSE 40% GEL 15 GM TUBE PO PRN (14:00)
[2021-09-04] MEDS: traMADol HCL 50 MG TABLET PO PRN (14:16)
[2021-09-04] MEDS: SODIUM CHLORIDE 0.9% 1000ML 1,000 ML IV SCH (15:50)
[2021-09-04] MEDS: ceFAZolin 2000MG 2,000 MG/15 ML SYR IV SCH (15:51)
[2021-09-04] MEDS: INSULIN ASPART PER UNIT SC SCH ×2 (17:55→20:52)
[2021-09-04] MEDS: DOCUSATE SODIUM/SENNA 50/8.6MG TAB PO SCH (20:30)
[2021-09-04] MEDS: SIMVASTATIN 20 MG TAB PO SCH (20:30)
[2021-09-04] MEDS: METOPROLOL SUCC 50MG EXT REL TAB PO SCH (20:32)
[2021-09-04] MEDS: oxyCODONE HCL IR 5 MG TAB (IMMEDIATE RELEASE) PO PRN (20:53)
[2021-09-04] MEDS ORDERED: INSULIN GLARGINE SOLOSTAR 100 UNITS/ML 3 ML PEN SC SCH (21:00)
[2021-09-05] MEDS: ceFAZolin 2000MG 2,000 MG/15 ML SYR IV SCH (00:11)
[2021-09-05] MEDS: SODIUM CHLORIDE 0.9% 1000ML 1,000 ML IV SCH (00:31)
[2021-09-05] MEDS: INSULIN ASPART PER UNIT SC SCH ×6 (00:38→21:30)
[2021-09-05] MEDS: oxyCODONE HCL IR 5 MG TAB (IMMEDIATE RELEASE) PO PRN ×4 (05:44→23:51)
[2021-09-05] MEDS: POLYETHYLENE (MIRALAX) 17 GM PACK PO SCH ×4 (05:44→23:52)
[2021-09-05 06:39] LABS: Basophils # (auto) 0.02 K/uL (0-0.2); Basophils % (auto) 0.1 %; Eosinophils # (auto) 0.04 K/uL (0-0.5); Eosinophils % (auto) 0.2 %; Hematocrit (blood only) 39.1 % (42-52); Hemoglobin 12.3 g/dL (14.0-18.0); Immature Granulocytes # (auto) 0.04 K/uL (0.00-0.02); Immature Granulocytes % (auto) 0.2 %; Lymphocytes # (auto) 2.46 K/uL (1.2-3.4); Mean Corpuscular Hemoglobin 26.7 pg (25-34); Mean Corpuscular Hgb Conc 31.5 g/dL (32-36); Mean Corpuscular Volume 84.8 fL (80-100); Mean Platelet Volume 9.9 fL (7.4-10.4); Monocytes # (auto) 1.38 K/uL (0.11-0.59); Monocytes % (auto) 7.8 %; Neutrophils # (auto) 13.65 K/uL (1.4-6.5); Neutrophils % (auto) 77.7 %; Platelet Count 278 K/uL (130-400); RDW Coefficient of Variation 13.7 % (11.5-14.5); RDW Standard Deviation 42.5 fL (36.4-46.3); Red Blood Count 4.61 M/uL (4.7-6.1); White Blood Count 17.59 K/uL (4.8-10.8)
[2021-09-05 07:05] LABS: BUN Creatinine Ratio 25.6 (10-20); Calcium 8.5 mg/dl (8.5-10.1); Creatinine Clr Calc Pharmacy 106.3 ml/min; Est GFR (African American) 110.2 ml/min; Est GFR (Non-African American) 95.1 ml/min; Potassium 3.8 mmol/L (3.5-5.1)
[2021-09-05 07:42] LABS: Estimated Average Glucose 154 mg/dl
[2021-09-05] MEDS: METOPROLOL SUCC 50MG EXT REL TAB PO SCH ×2 (08:16→20:03)
[2021-09-05] MEDS: POTASSIUM CHLORIDE 10 MEQ TABCR PO SCH (08:16)
[2021-09-05] MEDS: DIGOXIN 0.25 MG TAB PO SCH (08:16)
--- NOTE | 2021-09-05 10:54 | Hospitalist Progress Note ---
Date of Service September 05, 2021 Assessment & Plan (1) Lumbar stenosis with neurogenic claudication: Plan: - POD#1 T12-L1 decompression, T12-L2 fusion, L2 screw removal by Dr. Mejía - activity and wound care orders as per ortho - pain control with bowel regimen - PT/OT - monitor H/H for acute blood loss anemia and transfuse blood products PRN - EBL 130 cc, drain output 500 cc to date Postoperative acute blood loss anemia - Preop Hgb 14.9 --> 12.3, no indication for transfusion at this time (2) Atrial fibrillation: Plan: -Rate controlled on digoxin and metoprolol -Anticoagulated on Xarelto -resume at the discretion of spine Ortho (3) Diabetes: Plan: -Hgb A1c 7.0 -Glycemic pharmacy consulted by spine Ortho (4) DVT prophylaxis: Plan: -TEDs/SCDs as per spine Ortho Thank you for this consultation. We will follow the patient with you during their hospital stay. [facility] the [facility] in [place] Text. Admission and Anticipated Discharge Date Admission Date: September 04, 2021 Supervising Physician Co-Signing Physician Notes Patient is seen and examined at bedside. Denies any significant pain at surgical site. Ambulating in hallways with no issues. + Flatus, no bowel movement yet. Denies any chest pain, shortness of breath, dizziness, nausea, abdominal pain. On exam patient is moderately built and nourished, no apparent distress, normocephalic atraumatic, EOMI, normal breath sounds, clear to auscultation, irregularly irregular rhythm, no murmur, no pedal edema, abdomen soft, nontender, normal bowel sounds,Back: Surgical site in dressing, alert, awake, oriented, grossly no focal deficits. Lumbar stenosis with neurogenic claudication S/P surgery. Acute blood loss anemia postoperatively. Pain is well controlled. Continue bowel regimen to prevent constipation. Currently no indication for blood transfusion. Leukocytosis likely reactive. HbA1c 7.0. Continue Insulin therapy for diabetes management. Monitor blood glucose levels. Continue home medications for atrial fibrillation. Plan to resume Xarelto once cleared by orthopedics. I personally reviewed the record. Patient is interviewed and examined at bedside. Patient's care is coordinated with Sanjana Tamez NP. Please refer to the documentation above for details of patient's presentation and for discussion of other issues. Subjective Patient seen and examined. Follow-up for medical management s/p back surgery. Patient reports he is doing well. Reports pain is well controlled. Was able to sit in the chair for breakfast. Moore catheter was removed however patient has not voided yet. No flatus or BM yet however denies abdominal pain or nausea. No chest pain or shortness of breath. Denies lightheadedness and dizziness. Review of Systems Review of Systems: ROS per HPI, all other systems reviewed and negative Physical Exam Constitutional: WD/WN, vitals as above no acute distress Respiratory: normal respiratory effort, lungs clear to auscultation Cardiovascular: Rate/Rhythm: regular rate and regular rhythm Vessels: normal peripheral pulses Extremities: no edema Gastrointestinal (Abdomen): Inspection/Auscultation: normal bowel sounds Percussion/Palpation: abdomen soft; abdomen nontender Musculoskeletal: no cyanosis or clubbing, extremities motor strength 5/5 S/p back surgery, pedal pushes and pulls strong bilaterally, drain in place draining bloody drainage Skin: no rashes, warm and dry Neurologic: no focal motor deficits Psychiatric: A+Ox3, euthymic affect Results & Data Results & Data ([facility]) Vital Signs (Past 12 Hours) Vital Signs Temp Pulse Pulse Pulse Resp BP Pulse Ox 09/05/21 08:16 77 09/05/21 07:35 36.9 C 77 16 104/67 100 09/05/21 03:57 36.8 C 89 16 109/68 97 09/04/21 23:35 37 C 93 H 16 115/77 96 Laboratory Results Short CBC 09/05/21 Range/Units 06:01 WBC 17.59 H (4.8-10.8) K/uL Hgb 12.3 L (14.0-18.0) g/dL Hct 39.1 L (42-52) % Plt Count 278 (130-400) K/uL BMP 09/05/21 06:01 Sodium 137 Potassium 3.8 Chloride 104 Carbon Dioxide 28 BUN 18 Creatinine 0.71 Glucose 93 Calcium 8.5
--- NOTE | 2021-09-05 13:42 | Orthopedic Progress Note ---
Date of Service September 05, 2021 Assessment & Plan (1) Lumbar stenosis with neurogenic claudication: Plan: At this time continue physical therapy monitor his TREASURE operatively discharge home in the next day or so. Admission and Anticipated Discharge Date Admission Date: September 04, 2021 Subjective Patient's back pain is controlled leg symptoms markedly improved. Physical Exam Physical Exam: On exam he is able to stand and ambulate without difficulty. Is good strength testing. Results & Data ([facility]) Vital Signs (Past 12 Hours) Vital Signs Temp Pulse Pulse Pulse Resp BP Pulse Ox 09/05/21 08:16 77 09/05/21 07:35 36.9 C 77 16 104/67 100 09/05/21 03:57 36.8 C 89 16 109/68 97
--- NOTE | 2021-09-05 14:54 | Pharmacy Report ---
Pharmacy Glycemic Short Note 2 - Date of Service September 05, 2021 - Glycemic Short BSG Results (Last 24 hours): 09/04/21 09/04/21 09/05/21 16:56 20:34 00:37 Glucose POC Glucose 170 H 150 H 87 09/05/21 09/05/21 09/05/21 04:05 06:01 07:44 Glucose 93 POC Glucose 89 119 H 09/05/21 12:01 Glucose POC Glucose 75 OUTPATIENT ANTIDIABETIC REGIMEN: * Metformin 500 mg PO BID * Jardiance 25 mg PO AM * Lantus 22 units SC PM * Ozempic 0.5 mg SC every Saturday * HbA1c pending ASSESSMENT: 09/05 * Patient required 28 units of insulin yesterday, of which 22 units were basal * Fasting BSG 119 mg/dL - plan to scale back on basal as no steroids ordered today (plan to start dex tomorrow AM) * BSGs trending down further today, removed CR with dinner * Will need to adjust tomorrow with steroids ordered 09/04 * 71 yo M admitted POD#0 s/p spinal fusion by Dr. Mejía. Pharmacy has been consulted to assist with inpatient glycemic management. Patient is ordered a clear liquid diet for the time being. Also received 12 mg of IV dexamethasone intraoperatively. * Pre-op BSG was 97 mg/dL. Post-op BSGs have been 92-122 mg/dL. * Hold off on giving any NPH given controlled BSGs and clear liquid diet. * Resume home Lantus dose this evening which should be enough to help cover steroid-induced hyperglycemia. * Targeting a goal of 110-140 mg/dL post-op to promote wound healing and prevent infection. * Novolog based on weight and stress of 2. Will get overnight checks for the first night. PLAN FOR INPATIENT GLYCEMIC CONTROL: * Hold outpatient oral diabetes medications * Basal insulin * Lantus 12-15 units SC HS based upon BSG * Bolus insulin * NovoLog per scale ACHS or Q6hrs while NPO * Goal Range: Low 110 mg/dL - High 140 mg/dL * Correction Factor: 25 mg/dL/unit * Nutritional / Prandial insulin per carb ratio of 1 unit per -- grams CHO consumed PLAN FOR DISCHARGE: * To be determined
[2021-09-05] MEDS: DOCUSATE SODIUM/SENNA 50/8.6MG TAB PO SCH (20:02)
[2021-09-05] MEDS: SIMVASTATIN 20 MG TAB PO SCH (20:02)
[2021-09-05] MEDS ORDERED: INSULIN GLARGINE SOLOSTAR 100 UNITS/ML 3 ML PEN SC SCH (21:00)
[2021-09-06] MEDS: oxyCODONE HCL IR 5 MG TAB (IMMEDIATE RELEASE) PO PRN (05:18)
[2021-09-06] MEDS: POLYETHYLENE (MIRALAX) 17 GM PACK PO SCH ×2 (05:19→13:08)
[2021-09-06 06:17] LABS: Hematocrit (blood only) 37.6 % (42-52); Hemoglobin 11.9 g/dL (14.0-18.0); Mean Corpuscular Hemoglobin 26.7 pg (25-34); Mean Corpuscular Hgb Conc 31.6 g/dL (32-36); Mean Corpuscular Volume 84.3 fL (80-100); Mean Platelet Volume 10.2 fL (7.4-10.4); Platelet Count 247 K/uL (130-400); RDW Coefficient of Variation 13.6 % (11.5-14.5); RDW Standard Deviation 41.6 fL (36.4-46.3); Red Blood Count 4.46 M/uL (4.7-6.1)
[2021-09-06 06:59] LABS: BUN Creatinine Ratio 27.5 (10-20); Calcium 8.9 mg/dl (8.5-10.1); Creatinine Clr Calc Pharmacy 99.3 ml/min; Est GFR (African American) 107.1 ml/min; Est GFR (Non-African American) 92.4 ml/min; Potassium 4.1 mmol/L (3.5-5.1)
[2021-09-06 08:04] VITALS: BP 120/68; TEMP 98.1
[2021-09-06] MEDS: DIGOXIN 0.25 MG TAB PO SCH (08:46)
[2021-09-06] MEDS: POTASSIUM CHLORIDE 10 MEQ TABCR PO SCH (08:46)
[2021-09-06] MEDS: METOPROLOL SUCC 50MG EXT REL TAB PO SCH (08:46)
[2021-09-06] MEDS: traMADol HCL 50 MG TABLET PO PRN (08:46)
[2021-09-06] MEDS: INSULIN ASPART PER UNIT SC SCH ×2 (08:58→13:44)
[2021-09-06] MEDS ORDERED: dexAMETHasone 4 MG in SYRINGE 0 ML IV SCH (09:00)
[2021-09-06 10:49] VITALS: O2SAT 96
--- NOTE | 2021-09-06 12:56 | Discharge Summary ---
Date of Service September 06, 2021 Admission HPI Per Admitting Provider This is a 71-year-old male well-known to me the presents with marked clinical status with worsening back and bilateral leg pain. After failing course of nonoperative care is here for surgical intervention. Principal Diagnosis Thoracic spinal stenosis with myelopathy Discharge Data Allergies Allergy/AdvReac Type Severity Reaction Status Date / Time No Known Allergies Allergy Verified 09/04/21 05:40 Consultations 09/04/21 12:16 Consult Hospitalist Routine Procedures Performed Operation Date: 09/04/21 07:30 Actual Procedures p T12-L1 Decompression, T12-L2 Fusion, Spinal Cord Monitoring, Application of Bone Morphogentic Protein and I-Factor Bone Graft (Not Applicable) - Robb Mejía DO s L2 Removal of Screws(Not Applicable) - Robb Mejía DO Ordered Studies 09/04/21 07:30 FL lumbar spine 2-3V Routine Hospital Course (1) Lumbar stenosis with neurogenic claudication: Patient underwent lumbar decompression fusion tolerates well second orthopedic floor postoperative. Postop day 1 he was up and ambulating progressive postop day #2 TREASURE drain decreasing probably. Excellent strength testing. Leg symptoms improved. Socially discharged home. Discharge orders and instructions from the chart for further review. Total Time Total Time Spent Total Time Spent (In Minutes): 20 minutes Discharge Plan Discharge Items Patient Disposition: Home - Self-Care Reason For Visit: Intervertebral Disc Disorders Discharge Diagnosis: Lumbar spinal stenosis with neurogenic claudication Activity: As commented below Non-emergency contact: Primary Care Provider Call non-emergency contact if: you have any medication questions Follow-up/Referrals: Robb Mejía DO [Surgeon] - 09/21/21 10:00 am (Appt with Radha Bergman PA-C) PCP,NO [Primary Care Provider] - Diet: Regular Addtl Attending Provider Instructions: ACTIVITY RECOMMENDATIONS: SELF CARE INSTRUCTIONS AFTER THORACIC/LUMBAR FUSIONS 1. You may walk to your tolerance. It is good exercise for your legs and back. Expect some back and intermittent leg aches and pains. 2. You may perform "counter-top" level activities (make a sandwich, flory with a project, etc.). 3. No bending or lifting of more than 10 pounds or back twisting of any nature (roll like a log when turning in bed). 4. You may ride in a car for 20-30 minutes at a time. No driving until after your first visit with your doctor. 5. Frequent changes of position and restricting sitting to 30 minutes at a time will help limit the amount of back spasms and stiffness you may experience. 6. You may discontinue the use of ambulatory aids (cane, crutches, etc.) once your strength and confidence allow. 7. You may vp integrity the shower and let water strike your incision when you arrive home at least once daily. Do not take a tub bath, sit in a hot tub or go into a swimming pool until after your first recheck in the office. SPECIAL CARE INSTRUCTIONS: VERY IMPORTANT TO READ AND REVIEW A. Your surgical incision has been closed with a cosmetic suture under the skin that will dissolve in about 6 weeks. In 14 days, you can use a pair of clean scissors and cut the suture that is left outside of the skin at the ends of your incision. 1. The small skin tapes can be removed 7 days after surgery if they have not fallen off by that point. 2. You may keep the wound open to air as much as possible to promote healing after post-op day number 5 unless told otherwise by your doctor. 3. If you think the wound looks like it is becoming infected (redness or worsening drainage) and/or you are experiencing fever, chill or worsening back pain and muscle spasms, contact the office so that we may evaluate you as soon as possible. B. Complications are uncommon, but please contact us if you have any signs or symptoms of: 1. wound infection (fever higher than 102.5 degrees F, redness, separation of wound, drainage, or increasing pain from the incision) 2. blood clots in legs (pain, swelling, redness and warmth in legs) 3. urinary tract infection (fever higher than 102.5 degrees F, burning upon urination or increased frequency of urination) 4. nerve problems (inability to walk on your toes or heels, numbness, loss of bowel or bladder control) 5. any other symptoms that concern you C. Please call the office at if you have any concerns or que stions about your operation or recovery. D. No smoking! Smoking drastically decreases the chance of a solid fusion. E. Do not take any anti-inflammatory medications (Indocin, Advil, Motrin, Aspirin, Naprosyn, etc.) as these may inhibit the chance of a solid fusion. Tylenol is okay to take for pain. MANAGING PAIN AFTER SPINAL SURGERY 1. Narcotic medication is intended for short-term use and will be provided for surgical pain. Surgical pain usually lasts for a period of 4-6 weeks. Narcotic medication includes Percocet, Vicodin, Darvocet, Tylenol #3 or Lortab. 2. Longer-term pain is more appropriately treated with non-narcotic medication such as Tylenol ES. 3. Muscle spasm is not appropriately treated with narcotics. Muscle relaxers such as Soma, Flexeril or Skelaxin can be used along with Tylenol ES. 4. Remember that we all live with some "aches and pains". This is not unusual or uncommon after an injury or as we get older. a. Back pain is expected and may include muscle spasms for 4 to 6 weeks after surgery. The pain should gradually improve. If the pain worsens for no apparent reason, please contact the office. b. Intermittent leg pain may also be experienced and should not be concerned about unless it worsens for no apparent reason. If so, please contact the office. 5. We will provide appropriate medication within the normal guidelines of their prescribed use. We will also be very cautious and aware of potential abuse and extended duration of patients' medication needs. a. Pain medications are for your comfort and to assist with sleep and rest so that the tissue can heal. They are not provided in order to return to normal activity and should not be used through the day. To do so or worsening pain at night can result from ongoing tissue damage and development of tolerance to the prescribed medicine. 6. Please allow 2-3 days to process refills. Prescriptions will not be mailed but must be picked up at the office. FOLLOW UP VISIT: Keep your scheduled follow-up appointment. Any questions, please call the office at . Pending Studies at Discharge: No Stand-Alone Forms: My tsumobi, Smoking Cessation Medications and [facility] Order Prescriptions: New tramadol 50 mg tablet 50 mg PO Q6H PRN (Reason: pain, moderate) Qty: 30 RF: 0 oxycodone 5 mg tablet 5 mg PO Q6H PRN (Reason: pain, severe) Qty: 30 RF: 0 Continued metformin 500 mg Tablet 500 mg PO BID RF: 0 metoprolol succinate 50 mg Tablet Extended Release 24 Hr 50 mg PO UD RF: 0 potassium chloride 10 mEq Tablet Extended Release 10 meq PO QAM RF: 0 digoxin 250 mcg (0.25 mg) Tablet 250 mcg PO QAM RF: 0 simvastatin 20 mg Tablet 20 mg PO QPM RF: 0 Basaglar KwikPen U-100 Insulin 100 unit/mL (3 mL) Insulin Pen 22 unit SUBCUT QPM RF: 0 Xarelto 20 mg Tablet 20 mg PO QPM RF: 0 Jardiance 25 mg Tablet 25 mg PO QAM RF: 0 Ozempic 0.25 mg or 0.5 mg(2 mg/1.5 mL) Pen Injector 0.5 mg SUBCUT WK RF: 0 Discharge Orders: Discharge Order (Routine); Ordered 09/06/21 Ordered By: Robb Urena/Other Patient Handouts: Managing Type 2 Diabetes Admission Data Admit Date/Time: 09/04/21 10:15 Attending Provider: Robb Mejía Admit Provider: Robb Mejía Primary Care Provider: PCP,NO Other Providers: Carlito Serrano ; Pau Luis I.
[2021-09-06 13:13] VITALS: PULSE 89
--- NOTE | 2021-09-06 14:32 | Hospitalist Progress Note ---
Date of Service September 06, 2021 Assessment & Plan (1) Lumbar stenosis with neurogenic claudication: Plan: - POD#2 T12-L1 decompression, T12-L2 fusion, L2 screw removal by Dr. Mejía - activity and wound care orders as per ortho - pain control with bowel regimen - PT/OT - monitor H/H for acute blood loss anemia and transfuse blood products PRN - EBL 130 cc, drain output 745 cc to date Postoperative acute blood loss anemia - Preop Hgb 14.9 --> 12.3 --> 11.9, no indication for transfusion at this time (2) Atrial fibrillation: Plan: -Rate controlled on digoxin and metoprolol -Anticoagulated on Xarelto -resume at discharge per spine Ortho (3) Diabetes: Plan: -Hgb A1c 7.0 -Glycemic pharmacy consulted by spine Ortho (4) DVT prophylaxis: Plan: -TEDs/SCDs as per spine Ortho Thank you for this consultation. We will follow the patient with you during their hospital stay. You can reach a member of the [facility] Hospitalist Team 25/03 via the [facility] role in [place] [facility]. Admission and Anticipated Discharge Date Admission Date: September 04, 2021 Supervising Physician Co-Signing Physician Notes Patient seen and examined. Agree with findings and plan as detailed by Sanjana CURRAN Subjective Patient seen and examined. Follow-up for medical management s/p back surgery. Patient sitting up in the chair. Reports pain is well controlled. Urinating without difficulty, + flatus and small BM this morning. Denies abdominal pain or nausea. No chest pain or shortness of breath. Review of Systems Review of Systems: ROS per HPI, all other systems reviewed and negative Physical Exam Constitutional: WD/WN, vitals as above Respiratory: normal respiratory effort, lungs clear to auscultation Cardiovascular: Rate/Rhythm: regular rate and + irregularly irregular Vessels: normal peripheral pulses Extremities: no edema Gastrointestinal (Abdomen): Percussion/Palpation: abdomen soft; abdomen nontender Musculoskeletal: S/p back surgery, strength strong equal BLE Skin: no rashes, warm and dry Neurologic: no focal motor deficits Psychiatric: A+Ox3, euthymic affect Results & Data Results & Data ([facility]) Vital Signs (Past 12 Hours) Vital Signs Temp Pulse Pulse Pulse Pulse Resp BP 09/06/21 13:12 36.7 C 68 89 90 66 19 116/74 09/06/21 10:48 09/06/21 07:20 36.7 C 68 66 19 BP Pulse Ox 09/06/21 13:12 120/68 96 09/06/21 10:48 96 09/06/21 07:20 120/68 Laboratory Results Short CBC 09/06/21 Range/Units 05:36 WBC 13.60 H (4.8-10.8) K/uL Hgb 11.9 L (14.0-18.0) g/dL Hct 37.6 L (42-52) % Plt Count 247 (130-400) K/uL BMP 09/06/21 05:36 Sodium 136 Potassium 4.1 Chloride 101 Carbon Dioxide 29 BUN 21 H Creatinine 0.76 Glucose 134 H Calcium 8.9
== END 2021-09-06 16:17 | disposition home or self-care (01) | DRG 454 ==
LOC: ASU 05:29 → 3E 10:15

== ENCOUNTER 2022-02-15 07:32 | Inpatient (IN) ==
--- NOTE | 2022-02-14 09:05 | Anesthesiology Consultation ---
Date of Service February 14, 2022 Assessment & Plan (1) Encounter for pre-operative examination: - COVID screening: Per assessment on 02/13: No known COVID-19 positive contacts or current COVID-19 related symptoms. Travel screen negative. Patient vaccinated . [place]. - Check BSG AM DOS - PCP note (02/09/22): "Low risk.. OK to hold Xarelto 3-5 days before" - Cardiology note (02/08/22): " He is low to intermediate risk for OR. If the surgery requires interupting [sic] anticoagulation, then hold Xarelto 3 days before procedure and resume as soon as possible after procedure to minimize the interuption [sic] of anticoagulation the procedure necessatated [sic]." - Xarelto instructions: Per surgeon/prescriber - S/P T12-L2 decompression/fusion (09/04/21): MAC 3.0, ETT 8.0 at [facility]. No issues per post-op anesthesia progress note. Chart Review Chart Review: Acceptable Risk for Surgery and Patient NOT seen in Pre Admission Testing History Surgery Operation Date: 02/15/22 09:30 Proposed Procedures p T11-T12 Decompression, T10-L2 Fusion, T12-L1 Hardware Removal, Spinal Cord Mo nasim - Robb Mejía DO Height/Weight Height: 6 ft Weight: 86.636 kg Allergies Allergy/AdvReac Type Severity Reaction Status Date / Time No Known Allergies Allergy Verified 09/04/21 05:40 Medications Home Medications Medication Instructions Recorded Confirmed Last Taken digoxin 250 mcg (0.25 mg) tablet 250 mcg PO QAM 08/22/21 02/13/22 09/04/21 04:00 empagliflozin 25 mg tablet 25 mg PO QAM 08/22/21 02/13/22 09/03/21 08:00 (Jardiance) insulin glargine 100 unit/mL (3 22 unit SUBCUT QPM 08/22/21 02/13/22 09/03/21 22:00 mL) subcutaneous pen (Basaglar KwikPen U-100 Insulin) metformin 500 mg tablet 500 mg PO BID 08/22/21 02/13/22 09/03/21 22:00 metoprolol succinate 50 mg 50 mg PO UD 08/22/21 02/13/22 09/04/21 04:00 tablet,extended release 24 hr potassium chloride 10 mEq 10 meq PO QAM 08/22/21 02/13/22 09/03/21 08:00 tablet,extended release rivaroxaban 20 mg tablet (Xarelto) 20 mg PO QPM 08/22/21 02/13/22 08/31/21 22:00 semaglutide (Ozempic) 0.5 mg SUBCUT WK 08/22/21 02/13/22 09/03/21 22:00 simvastatin 20 mg tablet 20 mg PO QPM 08/22/21 02/13/22 09/03/21 22:00 oxycodone 5 mg tablet 5 mg PO Q6H PRN #30 tab 09/04/21 02/13/22 Unknown tramadol 50 mg tablet 50 mg PO Q6H PRN #30 tab 09/04/21 02/13/22 Unknown Past Medical History Medical History Arthritis Atrial fibrillation Reason for Xarelto Follows with Dr. Hughes Diabetes mellitus, type 2 History of kidney stones Hyperlipidemia Hypertension Spinal stenosis Past Family History Family History Other No family history of adverse response to anesthesia Past Surgical History Surgical History Fusion of spine LUMBAR x2 CERVICAL x1 (Good ROM per pt) History of appendectomy History of cardiac cath REMOTE > no stents History of cardioversion Multiple History of cataract surgery RT/LEFT History of colonoscopy History of herniorrhaphy x3 History of lithotripsy History of revision of total knee arthroplasty LEFT History of tooth extraction History of total knee replacement LEFT x2 Social History Smoking Status: Never smoker Do You Dip or Chew Tobacco: No Hx Alcohol Use: Yes Alcohol type: wine alcohol intake frequency: holidays/special occasions only Hx Substance Use: No substance use type: does not use Lab Results Anesthesia Preop Results Results Anesthesia Widget: WBC 10.99 K/uL (4.8-10.8) H 02/13/22 Hgb 14.2 g/dL (14.0-18.0) 02/13/22 Hct 44.0 % (42-52) 02/13/22 Plt 311 K/uL (130-400) 02/13/22 Na 139 mmol/L (136-145) 02/08/22 K 4.1 mmol/L (3.5-5.1) 02/08/22 Cl 104 mmol/L (98-107) 02/08/22 CO2 30 mmol/L (21-32) 02/08/22 BUN 18 mg/dl (6-23) 02/08/22 Creat 0.69 mg/dl (0.6-1.4) 02/08/22 Glucose Level 190 mg/dl (70-99(Fasting)) H 02/08/22 PT 11.1 Seconds (9.0-12.0) 02/13/22 PTT 28.5 Seconds (21.0-31.0) 02/13/22 INR 1.0 (0.9-1.1) 02/13/22 Urine Color Yellow 02/08/22 Urine Appearance Clear (Clear) 02/08/22 Urine pH 5.0 (4.5-7.5) 02/08/22 Urine Specific [place] 1.038 (1.000-1.030) H 02/08/22 Urine Protein Negative (Negative) 02/08/22 Urine Glucose (UA) 3+ (Negative) H 02/08/22 Urine Ketones Negative (Negative) 02/08/22 Urine Blood Negative (Negative) 02/08/22 Urine Nitrite Negative (Negative) 02/08/22 Urine Bilirubin Negative (Negative) 02/08/22 Urine Urobilinogen Negative (Negative) 02/08/22 Urine Leukocyte Esterase Negative (Negative) 02/08/22 Testing Electrocardiogram Date: 08/31/21 A. fib at 97bpm. NS STA. Chest X-Ray Date: 08/31/21 FINDINGS: Frontal and lateral radiographs of the chest demonstrate the cardiomediastinal silhouette to be within normal limits. The lungs are clear of alveolar opacities. There is no evidence for effusion bilaterally. There is no evidence for vascular congestion. There is no acute osseous pathology. IMPRESSION: No acute cardiopulmonary disease. Echocardiogram Date: 03/02/21 EF:55% LV Function:normal RWMA:+ none Other Findings:no LVH Valvular Disease:+ MR (mild ) Moderate left and right atrial enlargement. Mild TR. Borderline pulmonary HTN. Estimated PASP 35-40mmHg. Diastolic function is indeterminate due to atrial fibrillation.
[~2022-02-15 07:32] MED LIST changes: +ACETAMINOPHEN 500 MG TAB PO SCH; -CMD5 PO; -CMD75 PO; +CeleBREX 200 MG CAP PO SCH; -DILT120T8 PO; -FRS/40 PO; +GABAPENTIN 300 MG CAP PO SCH; -INSDGI SQ; +LR 15ML/HR IV SCH; -NASAL SPRAY NAE; -POTA-327 PO; -[UNRECOGNIZED DRUG - CODE] PO; +ceFAZolin 2000MG 2,000 MG/15 ML SYR IV SCH
--- NOTE | 2022-02-15 08:30 | History & Physical Bridge Note ---
Date of Service February 15, 2022 History & Physical Bridge Note I have examined the patient, reviewed the History & Physical and in the interval since the performance of the History & Physical I have noted the following changes of clinical significance: no changes noted
--- NOTE | 2022-02-15 08:32 | History & Physical Report ---
Date of Service February 15, 2022 Assessment & Plan (1) Myelopathy concurrent with and due to spinal stenosis of thoracic region: Plan: T11-T12 decompression and fusion T12-L1 hardware removal History of Present Illness Chief Complaint: Difficulty ambulating Primary Care Provider: Angela Lopez MD This is a 72-year-old male well-known to me the presents with marked decline in status and inability to ambulate. Updated imaging demonstrates evidence of severe thoracic stenosis and myelopathy and subsequent is here for surgical invention. Allergies Allergy/AdvReac Type Severity Reaction Status Date / Time No Known Allergies Allergy Verified 02/15/22 08:13 Home Medications Medication Instructions Recorded Confirmed Type digoxin 250 mcg (0.25 mg) tablet 250 mcg PO QAM 08/22/21 02/15/22 History empagliflozin 25 mg tablet 25 mg PO QAM 08/22/21 02/13/22 History (Jardiance) insulin glargine 100 unit/mL (3 22 unit SUBCUT QPM 08/22/21 02/13/22 History mL) subcutaneous pen (Basaglar KwikPen U-100 Insulin) metformin 500 mg tablet 500 mg PO BID 08/22/21 02/13/22 History metoprolol succinate 50 mg 50 mg PO UD 08/22/21 02/13/22 History tablet,extended release 24 hr potassium chloride 10 mEq 10 meq PO QAM 08/22/21 02/13/22 History tablet,extended release rivaroxaban 20 mg tablet (Xarelto) 20 mg PO QPM 08/22/21 02/15/22 History semaglutide (Ozempic) 0.5 mg SUBCUT WK 08/22/21 02/13/22 History simvastatin 20 mg tablet 20 mg PO QPM 08/22/21 02/13/22 History oxycodone 5 mg tablet 5 mg PO Q6H PRN #30 tab 09/04/21 02/13/22 Rx tramadol 50 mg tablet 50 mg PO Q6H PRN #30 tab 09/04/21 02/13/22 Rx Past Med/Surg History Medical History Arthritis Atrial fibrillation Reason for Xarelto Follows with Dr. Hughes Diabetes mellitus, type 2 History of kidney stones Hyperlipidemia Hypertension Spinal stenosis Surgical History Fusion of spine LUMBAR x2 CERVICAL x1 (Good ROM per pt) History of appendectomy History of cardiac cath REMOTE > no stents History of cardioversion Multiple History of cataract surgery RT/LEFT History of colonoscopy History of herniorrhaphy x3 History of lithotripsy History of revision of total knee arthroplasty LEFT History of tooth extraction History of total knee replacement LEFT x2 Family History Other No family history of adverse response to anesthesia Social History Smoking Status: Never smoker Second Hand Exposure: No; Do You Dip or Chew Tobacco: No; Tobacco Cessation Education Requested by Patient: No Hx Alcohol Use: Yes Alcohol type: wine Hx Substance Use: No Preferred Language: Slovenian Communication Ability: Effective Conference Translator Required: No Beliefs That Will Affect Care: None marital status: Current Living Situation: Spouse Other Information That Helps Us Care for You: No Feels Safe at Home: Yes Safety Concerns: Feels Safe At This Time Assistive Devices: Cane, Glasses and Walker Physical Exam Physical Exam: Patient is alert and oriented Heart regular rate and rhythm Lungs clear
[2022-02-15] MEDS ORDERED: MIDAZOLAM HCL 1 MG/ML 2ML VIAL ONE (08:52)
[2022-02-15] MEDS ORDERED: fentaNYL citrate 100 MCG/2 ML VIAL ONE (08:52)
[2022-02-15] MEDS ORDERED: ePHEDrine sulfate 50 MG/ML AMP IV PRN (08:53)
[2022-02-15] MEDS ORDERED: HYDROmorphone INJ 2 MG/ML SYR/VIAL IV PRN (08:53)
[2022-02-15] MEDS ORDERED: ATROPINE SULFATE 0.1 MG/ML 10ML SYR IV PRN (08:53)
[2022-02-15] MEDS ORDERED: fentaNYL citrate 100 MCG/2 ML VIAL IV PRN (08:53)
[2022-02-15] MEDS ORDERED: ONDANSETRON INJ 2 MG/ML 2 ML VIAL IV PRN ×2 (08:53→13:13)
[2022-02-15] MEDS ORDERED: PROMETHAZINE HCL 12.5 MG in SODIUM CHLORIDE 0.9% 50 ML IV PRN ×2 (08:53→13:13)
[2022-02-15] MEDS ORDERED: ROCURONIUM BROMIDE 10 MG/ML 5 ML VIAL IV ONE ×2 (08:56→10:28)
[2022-02-15] MEDS ORDERED: PROPOFOL IV EMULSION 10 MG/ML 20 ML VIAL IV ONE (08:56)
[2022-02-15] MEDS ORDERED: ONDANSETRON INJ 2 MG/ML 2 ML VIAL ONE ×2 (08:56→11:29)
[2022-02-15] MEDS ORDERED: DEXAMETHASONE SOD INJ 4 MG/ML VIAL ONE (08:56)
[2022-02-15] MEDS ORDERED: LIDOCAINE 2% 2 ML VIAL/AMP(20MG/ML) INFIL ONE (08:56)
[2022-02-15] MEDS ORDERED: BUPIVACAINE/EPINEPHRINE 0.25% 1:200,000 30 ML VIAL ONE (09:18)
[2022-02-15] MEDS ORDERED: ceFAZolin 330 MG/ML 1 GM VIAL ONE (09:18)
[2022-02-15] MEDS ORDERED: HYDROmorphone INJ 2 MG/ML SYR/VIAL ONE (10:00)
[2022-02-15] MEDS ORDERED: ePHEDrine sulfate 50 MG/ML SYR ONE (10:29)
[2022-02-15] MEDS ORDERED: FLOSEAL HEMOSTATIC MATRIX 10ML TOP ONE (11:24)
[2022-02-15] MEDS ORDERED: GLYCOPYRROLATE 0.2 MG/ML VIAL ONE (11:28)
[2022-02-15] MEDS ORDERED: NEOSTIGMINE METHYLSULFATE 1 MG/ML 10ML VIAL ONE (11:28)
--- NOTE | 2022-02-15 11:37 | Operative Report ---
Post Operative Report Pre & Post Diagnosis Operation Date: 02/15/22 09:30 Pre-Op Diagnosis: Myelopathy concurrent with and due to spinal stenosis of thoracic region Post-Op Diagnosis: Myelopathy concurrent with and due to spinal stenosis of thoracic region I identified the patient and participated in the time-out.: Yes Procedure Operation Date: 02/15/22 09:30 Actual Procedures #1 removal of posterior instrumentation T12-L1. #2 exploration of fusion T12- L1. #3 decompression with bilateral medial facetectomies foraminotomies T11- T12. #4 posterior spinal fusion T10-T12. #5 placement posterior instrumentation T10-L1. #6 placement locally harvested morselized autograft in the posterior lateral gutters. #7 placement infuse collagen sponge by master graft to posterior gutters from T10-L1. Surgeon Robb Mejía, DO Kids Activities Coach Radha Jensen Estimated Blood Loss 100 Findings Consistent with Post-Op Diagnosis Specimens None Indications This is a 72-year-old male known to me presents above-mentioned diagnosis in light of his decline and myelopathy is here for urgent decompression fusion. Description of Procedure Patient was met with identified informed consent obtained. Patient was then taken to the operative suite underwent a patient placed in a prone position the [place] table top [place] frame. All bony prominences well-padded eyes inspected to ensure no external pressure placed upon them. This point the thoracolumbar spine was prepped and draped in a sterile fashion. Sharp dissection with the assistance were guarded from down to and exposing the lamina and transverse processes of T11 and instrumentation at T12 L1-L2 and a connecting barrels. And then proceeded move the hardware bilaterally explore the fusion mass from T12 to L 2 noting it to be maturing. I then performed a complete laminectomy of T11 including medial facetectomies foraminotomies addressing all compression. Pedicle screws then placed in T11-T12 and L1 bilaterally. I was concerned about the purchase of the T11 screws and junctional stability subsequently extended the fusion to T10. I did obtain excellent purchase in the T10 pedicles. Proper size rods were then contoured and locked into position bilaterally. The transverse processes of B14-D64-H02 and L1 were then burred to subcortical bleeding bone. Infuse collagen sponge and master graft combined with locally harvested morselized autograft was then placed in the posterior gutters. 15 round TREASURE drain inserted. Incision was then closed with 1 Vicryl the fascia 2-0 Vicryl subcutaneously and 4 Monocryl for final skin closure. Steri-Strip sterile dressings placed. Patient waken taken to PACU in stable condition. Please note spinal cord monitoring was utilized at the procedure no changes noted. Lastly Radha Jensen was present throughout the entire procedure and while the patient positioning complex portion of the surgery and final skin closure. I attest to the content of the Intraoperative Record and any orders documented therein. Any exceptions are noted below.
[2022-02-15] MEDS ORDERED: SODIUM CHLORIDE 0.9% 50 ML BAG ONE (12:15)
[2022-02-15] MEDS ORDERED: PROMETHAZINE HCL INJ 25 MG/ML 1 ML VIAL ONE (12:16)
--- NOTE | 2022-02-15 12:17 | Fluoroscopy Report ---
INTRAOPERATIVE RADIOGRAPHS CLINICAL HISTORY: T11-L2 spinal fusion. Fluoroscopy time: 35 seconds. FINDINGS: 2 spot fluoroscopic views of the lumbar spine are presented. There is evidence of laminecto my and posterior fusion at the thoracolumbar junction, reportedly at T11-L2. Interpedicular screws ar e present at all levels. The inferior extent of the hardware is not visualized. Imaged portions of th e orthopedic hardware appear intact. IMPRESSION: Intraoperative images from thoracolumbar spinal fusion surgery as above. Electronically signed by: Timo Chase M.D. 02/15/2022 12:16 PM
--- NOTE | 2022-02-15 12:36 | Anesthesiology Progress Note ---
Date of Service February 15, 2022 Anesthesia Post Procedure Vital Signs Vital Signs: Temp Pulse Resp BP Pulse Ox 02/15/22 12:20 79 16 122/70 100 02/15/22 12:10 82 16 123/72 99 02/15/22 12:00 88 16 117/66 98 02/15/22 11:54 36.9 C 87 18 109/67 97 02/15/22 08:16 36.8 C 96 H 20 130/81 98 Transfer of Care Handoff Completed per policy Notes Mental Status: alert / awake / arousable and participated in evaluation Patient Amnestic to Procedure: Yes Nausea / Vomiting: adequately controlled Pain: adequately controlled Airway Patency, RR, SpO2: stable & adequate BP & HR: stable & adequate Hydration State: stable & adequate Anesthetic Complications: no major complications apparent
[2022-02-15] MEDS ORDERED: FAMOTIDINE 20 MG TAB PO PRN (13:13)
[2022-02-15] MEDS ORDERED: LORazepam 0.5 MG in SYRINGE 0.25 ML IV PRN (13:13)
[2022-02-15] MEDS ORDERED: ONDANSETRON 4 MG OD TAB PO PRN (13:13)
[2022-02-15] MEDS ORDERED: DO NOT ADMINISTER PNEUMOCOCCAL VACCINE PRN (13:13)
[2022-02-15] MEDS ORDERED: ACETAMINOPHEN 500 MG TAB PO PRN (13:13)
[2022-02-15] MEDS ORDERED: DO NOT ADMINISTER FLU VACCINE PRN (13:13)
[2022-02-15] MEDS ORDERED: oxyCODONE HCL IR 5 MG TAB (IMMEDIATE RELEASE) PO PRN (13:13)
[2022-02-15] MEDS ORDERED: hydrOXYzine HCl 25 MG TAB PO PRN (13:13)
[2022-02-15] MEDS ORDERED: MAGNESIUM HYDROXIDE SUSP 30 ML UDC PO PRN (13:13)
[2022-02-15] MEDS ORDERED: NALOXONE HCL 0.4 MG/1 ML VIAL/CARP IV PRN (13:13)
[2022-02-15] MEDS ORDERED: SOD PHOSPHATE/SOD BIPHOSPHATE ENEMA 132 ML BTL PR PRN (13:13)
[2022-02-15] MEDS ORDERED: HYDROmorphone INJ 1 MG/ML SYRINGE IV PRN (13:13)
[2022-02-15] MEDS ORDERED: HYDROmorphone INJ 0.5 MG/0.5 ML SYR IV PRN (13:13)
[2022-02-15] MEDS ORDERED: traMADol HCL 50 MG TABLET PO PRN (13:13)
[2022-02-15] MEDS ORDERED: ALUMINUM/MAGNESIUM SUSP 30 ML UDC PO PRN (13:13)
[2022-02-15] MEDS ORDERED: diphenhydrAMINE Capsule 25 MG CAP PO PRN (13:13)
[2022-02-15] MEDS ORDERED: ACETAMINOPHEN 1,000 MG/100 ML VIAL IV PRN (13:13)
[2022-02-15] MEDS ORDERED: PHARMACY GLYCEMIC MGMT CONSULT PRN (13:13)
[2022-02-15] MEDS ORDERED: bisacodyL 10 MG SUPP PR PRN (13:13)
[2022-02-15] MEDS ORDERED: LORazepam 0.5 MG TAB PO PRN (13:13)
[2022-02-15] MEDS ORDERED: METOCLOPRAMIDE HCL INJ 5 MG/ML 2 ML VIAL IV PRN (13:13)
[2022-02-15] MEDS: SODIUM CHLORIDE 0.9% 1000ML 1,000 ML IV SCH (13:27)
--- NOTE | 2022-02-15 13:59 | Pharmacy Report ---
Pharmacy Glycemic Short Note 2 - Date of Service February 15, 2022 - Glycemic Short BSG Results (Last 24 hours): 02/15/22 02/15/22 09:06 11:56 POC Glucose 96 169 H OUTPATIENT ANTIDIABETIC REGIMEN: * Jardiance 25 mg PO qam + metformin 500 mg PO BID * Insulin Basaglar 22 units SQ qPM * Ozempic 0.5 mg SQ weekly on Sundays * A1c = 7% (09/07/21) ASSESSMENT: * Sj is a 72 yo T2DM s/p spinal surgery * BSG of 169 mg/dL upon arrival to the floor. It appears that he was administered dexamethasone 8 mg IV kristine-operatively. He is also ordered to start dexamethasone 6 mg IV daily tomorrow morning. * Will order a one time dose of NPH to combat steroid induced hyperglycemia - reassess dose on 02/16 * Continue home dose of basal insulin * Novolog weight based dosing using a stress of 2-3 PLAN FOR INPATIENT GLYCEMIC CONTROL: * Hold outpatient oral diabetes medications * Basal insulin * NPH 20 units (~0.2 units/kg) SQ now x 1 * Lantus 18-22 units SQ qPM (22 units for BSG 140 mg/dL or more) * Bolus insulin * NovoLog per scale ACHS or Q6hrs while NPO * Goal Range: Low 110 mg/dL - High 140 mg/dL * Correction Factor: 25 mg/dL/unit * Nutritional / Prandial insulin per carb ratio of 1 unit per 8 grams CHO consumed
[2022-02-15] MEDS ORDERED: NovoLIN-N (NPH) PER UNIT CHARGE SQ ONE (14:00)
[2022-02-15] MEDS: INSULIN ASPART PER UNIT SC SCH ×3 (14:07→21:25)
--- NOTE | 2022-02-15 16:21 | Consultation ---
Date of Consultation February 15, 2022 Assessment & Plan (1) Myelopathy concurrent with and due to spinal stenosis of thoracic region: #. Myelopathy concurrent with and due to spinal stenosis of thoracic region #. Status post decompression and fusion of T2-L1 by Dr. Mejía on 02/15/2022 PT/OT, pain management, DVT prophylaxis per primary team. Incentive spirometer Labs in a.m., watch for ABL anemia Patient reports pain under control. Patient reports an improvement of BLE numbness. #. History of A. fib Patient on Xarelto at home, to be resumed upon clearance by Ortho. #. Diabetes Last A1c in September 08.0, update A1c, glycemic pharmacy on board for management. #. DVT prophylaxis: Per primary team #. Full code History of Present Illness Reason for Consultation: Medical management Attending Physician: Robb Mejía, DO History of Present Illness 72-year-old gentleman with PMH of myelopathy concurrent with and due to spinal stenosis of thoracic region, A. fib, lumbar stenosis with neurogenic claudication, diabetes and history of multiple back surgeries who is a medical consult for elective thoracolumbar spine surgery by Dr. Mejía on 02/15/2022. Patient was seen and examined at bedside, was lying on room air, alert and oriented x3, not in acute distress, who underwent surgery due to back pain associated with BLE weakness and numbness. Patient reports improvement in his BLE numbness. Patient yet to ambulate with PT/OT. Patient reports pain under control. Patient denies any fever/headache/dizziness/chest pain/belly pain. Patient denies using tobacco current or past. Reports very occasional alcohol use. Denies any history of drug abuse. Allergies Allergy/AdvReac Type Severity Reaction Status Date / Time No Known Allergies Allergy Verified 02/15/22 08:13 Home Medications Medication Instructions Recorded Confirmed Type digoxin 250 mcg (0.25 mg) tablet 250 mcg PO QAM 08/22/21 02/15/22 History empagliflozin 25 mg tablet 25 mg PO QAM 08/22/21 02/15/22 History (Jardiance) insulin glargine 100 unit/mL (3 22 unit SUBCUT QPM 08/22/21 02/15/22 History mL) subcutaneous pen (Basaglar KwikPen U-100 Insulin) metformin 500 mg tablet 500 mg PO BID 08/22/21 02/15/22 History metoprolol succinate 50 mg 50 mg PO UD 08/22/21 02/15/22 History tablet,extended release 24 hr potassium chloride 10 mEq 10 meq PO QAM 08/22/21 02/15/22 History tablet,extended release rivaroxaban 20 mg tablet (Xarelto) 20 mg PO QPM 08/22/21 02/15/22 History semaglutide (Ozempic) 0.5 mg SUBCUT WK 08/22/21 02/15/22 History simvastatin 20 mg tablet 20 mg PO QPM 08/22/21 02/15/22 History oxycodone 5 mg tablet 5 mg PO Q6H PRN #30 tab 09/04/21 02/15/22 Rx tramadol 50 mg tablet 50 mg PO Q6H PRN #30 tab 09/04/21 02/15/22 Rx Patient History Medical History Arthritis Atrial fibrillation Reason for Xarelto Follows with Dr. Hughes Diabetes mellitus, type 2 History of kidney stones Hyperlipidemia Hypertension Spinal stenosis Surgical History Fusion of spine LUMBAR x2 CERVICAL x1 (Good ROM per pt) History of appendectomy History of cardiac cath REMOTE > no stents History of cardioversion Multiple History of cataract surgery RT/LEFT History of colonoscopy History of herniorrhaphy x3 History of lithotripsy History of revision of total knee arthroplasty LEFT History of tooth extraction History of total knee replacement LEFT x2 Family History Other No family history of adverse response to anesthesia Social History Smoking Status: Never smoker Second Hand Exposure: No; Do You Dip or Chew Tobacco: No; Tobacco Cessation Education Requested by Patient: No Hx Alcohol Use: Yes Alcohol type: wine Hx Substance Use: No Preferred Language: Upper Sorbian Communication Ability: Effective Wheel Buffer Required: No Beliefs That Will Affect Care: None marital status: Current Living Situation: Spouse Other Information That Helps Us Care for You: No Feels Safe at Home: Yes Safety Concerns: Feels Safe At This Time Assistive Devices: Walker Review of Systems Review of Systems: Negative otherwise mentioned in HPI. Physical Exam Physical Exam: GENERAL: Alert and oriented x3. NAD, on RA. HEENT: No pallor, no icterus. Pupils equal, round and reactive to light. Oral mucosa moist. NECK: No JVD, no neck masses. HEART: S1 and S2 heard. Regular rate and rhythm. No murmur, no gallop. RESPIRATORY SYSTEM: Normal AP diameter. No accessory muscle use. No wheezing, no crackles. ABDOMEN: Soft, bowel sounds present, nontender, no distention. CENTRAL NERVOUS SYSTEM: No facial droop. Speech is clear. Obeys simple commands. Moves extremities. EXTREMITIES: No edema, no erythema seen. Mid back with clean dressing without soakage. TREASURE drain with moderate serosanguineous collection noted. Results & Data ([facility]) Vital Signs (Past 12 Hours) Vital Signs Temp Pulse Resp BP Pulse Ox 02/15/22 15:59 36.4 C L 105 H 12 101/63 95 02/15/22 15:05 36.3 C L 91 H 16 106/71 94 02/15/22 13:58 36.4 C L 89 16 116/62 95 02/15/22 13:30 36.3 C L 82 16 114/74 94 02/15/22 13:00 36.5 C 96 H 16 110/71 94 02/15/22 12:30 36.6 C 80 16 124/89 95 02/15/22 12:20 79 16 122/70 100 02/15/22 12:10 82 16 123/72 99 02/15/22 12:00 88 16 117/66 98 02/15/22 11:54 36.9 C 87 18 109/67 97 02/15/22 08:16 36.8 C 96 H 20 130/81 98
[2022-02-15] MEDS: ceFAZolin 2000MG 2,000 MG/15 ML SYR IV SCH (18:03)
[2022-02-15] MEDS: METOPROLOL SUCC 50MG EXT REL TAB PO SCH (19:59)
[2022-02-15] MEDS: SIMVASTATIN 20 MG TAB PO SCH (19:59)
[2022-02-15] MEDS: DOCUSATE SODIUM/SENNA 50/8.6MG TAB PO SCH (20:00)
[2022-02-15] MEDS ORDERED: INSULIN GLARGINE SOLOSTAR 100 UNITS/ML 3 ML PEN SC SCH (21:00)
[2022-02-15] MEDS ORDERED: Nursing to Pharmacy Communication SCH (23:45)
[2022-02-16] MEDS: ceFAZolin 2000MG 2,000 MG/15 ML SYR IV SCH (01:53)
[2022-02-16] MEDS: POLYETHYLENE (MIRALAX) 17 GM PACK PO SCH ×3 (06:06→17:44)
[2022-02-16 06:55] LABS: Basophils # (auto) 0.04 K/uL (0-0.2); Basophils % (auto) 0.2 %; Eosinophils # (auto) 0.23 K/uL (0-0.5); Eosinophils % (auto) 1.1 %; Hematocrit (blood only) 40.8 % (42-52); Immature Granulocytes # (auto) 0.09 K/uL (0.00-0.02); Immature Granulocytes % (auto) 0.4 %; Lymphocytes # (auto) 4.09 K/uL (1.2-3.4); Mean Corpuscular Hemoglobin 26.2 pg (25-34); Mean Corpuscular Hgb Conc 31.9 g/dL (32-36); Mean Corpuscular Volume 82.3 fL (80-100); Mean Platelet Volume 9.9 fL (7.4-10.4); Monocytes # (auto) 2.29 K/uL (0.11-0.59); Monocytes % (auto) 11.2 %; Neutrophils # (auto) 13.72 K/uL (1.4-6.5); Neutrophils % (auto) 67.1 %; Platelet Count 315 K/uL (130-400); RDW Coefficient of Variation 14.2 % (11.5-14.5); RDW Standard Deviation 42.5 fL (36.4-46.3); Red Blood Count 4.96 M/uL (4.7-6.1); White Blood Count 20.46 K/uL (4.8-10.8)
[2022-02-16] MEDS: SODIUM CHLORIDE 0.9% 1000ML 1,000 ML IV SCH (07:13)
[2022-02-16 07:23] LABS: BUN Creatinine Ratio 31.5 (10-20); Creatinine Clr Calc Pharmacy 101.9 ml/min; Est GFR (African American) 108.2 ml/min; Est GFR (Non-African American) 93.3 ml/min; Magnesium 1.7 mg/dl (1.7-2.4); Potassium 3.6 mmol/L (3.5-5.1)
[2022-02-16 07:39] LABS: Estimated Average Glucose 148 mg/dl; Hemoglobin A1C 6.8 % (4.5-5.6)
[2022-02-16] MEDS: POTASSIUM CHLORIDE 10 MEQ TABCR PO SCH (07:57)
[2022-02-16] MEDS: dexAMETHasone 6 MG in SYRINGE 0 ML IV SCH (07:57)
[2022-02-16] MEDS: METOPROLOL SUCC 50MG EXT REL TAB PO SCH ×2 (07:57→20:19)
[2022-02-16] MEDS: INSULIN ASPART PER UNIT SC SCH ×4 (09:12→20:35)
--- NOTE | 2022-02-16 10:54 | Orthopedic Progress Note ---
Date of Service February 16, 2022 Assessment & Plan (1) Myelopathy concurrent with and due to spinal stenosis of thoracic region: Plan: At this time continue physical therapy monitor his TREASURE operatively discharge home this weekend. Admission and Anticipated Discharge Date Admission Date: February 15, 2022 Subjective Patient's back pain is controlled leg symptoms have improved Physical Exam Physical Exam: On exam the patient was able to get out of bed and ambulate on his own. He had good balance and gets excellent strength testing. Results & Data ([facility]) Vital Signs (Past 12 Hours) Vital Signs Temp Pulse Resp BP Pulse Ox 02/16/22 07:28 36.5 C 93 H 16 138/74 96 02/16/22 03:15 36.9 C 87 16 103/64 95 02/15/22 23:40 36.4 C L 86 16 105/65 95
--- NOTE | 2022-02-16 13:24 | Orthopedic Progress Note ---
Date of Service February 16, 2022 Assessment & Plan (1) Myelopathy concurrent with and due to spinal stenosis of thoracic region: Plan: This we will continue ambulation as tolerated with therapy. Monitor his TREASURE output hopefully discharge home this weekend. Admission and Anticipated Discharge Date Admission Date: February 15, 2022 Subjective Patient's back pain is controlled leg symptoms are markedly improved Physical Exam Physical Exam: On exam he was able to stand and ambulate without difficulty. He is not using his walker. TREASURE drain intact and functioning. Results & Data ([facility]) Vital Signs (Past 12 Hours) Vital Signs Temp Pulse Resp BP Pulse Ox 02/16/22 11:48 36.7 C 101 H 16 124/81 97 02/16/22 07:28 36.5 C 93 H 16 138/74 96 02/16/22 03:15 36.9 C 87 16 103/64 95
--- NOTE | 2022-02-16 13:26 | Pharmacy Report ---
Pharmacy Glycemic Short Note 2 - Date of Service February 16, 2022 - Glycemic Short BSG Results (Last 24 hours): 02/15/22 02/15/22 02/15/22 14:01 17:46 21:11 Glucose POC Glucose 174 H 168 H 124 H 02/16/22 02/16/22 06:33 12:19 Glucose 69 L POC Glucose 146 H OUTPATIENT ANTIDIABETIC REGIMEN: * Jardiance 25 mg PO qam + metformin 500 mg PO BID * Insulin Basaglar 22 units SQ qPM * Ozempic 0.5 mg SQ weekly on Sundays * A1c = 7% (09/07/21) ASSESSMENT: 02/16/22: * Patient received total of 45 units of insulin yesterday; basal 38 units (20 units NPH + 18 units Lantus) + 7 units bolus. * Fasting BSG today was 69 mg/dl. * Reduced basal insulin tonight to only Lantus 12 units. * Patient continues on IV Dexamethasone 6 mg daily. However, I did not order NPH insulin today since BSGs today have been lower than yesterday. Plan to re- assess this tomorrow. * Continued Novolog CF and CR same as yesterday but may need tightened up further tomorrow since IV steroid continued and if not using NPH. Background 02/15/22: * Sj is a 72 yo T2DM s/p spinal surgery * BSG of 169 mg/dL upon arrival to the floor. It appears that he was administered dexamethasone 8 mg IV kristine-operatively. He is also ordered to start dexamethasone 6 mg IV daily tomorrow morning. * Will order a one time dose of NPH to combat steroid induced hyperglycemia - reassess dose on 02/16 * Continue home dose of basal insulin * Novolog weight based dosing using a stress of 2-3 PLAN FOR INPATIENT GLYCEMIC CONTROL: * Hold outpatient oral diabetes medications * Basal insulin * Lantus 12 units SQ HS * Bolus insulin * NovoLog per scale ACHS or Q6hrs while NPO * Goal Range: Low 110 mg/dL - High 140 mg/dL * Correction Factor: 25 mg/dL/unit * Nutritional / Prandial insulin per carb ratio of 1 unit per 8 grams CHO consumed
--- NOTE | 2022-02-16 17:13 | Hospitalist Progress Note ---
Date of Service February 16, 2022 Assessment & Plan (1) Myelopathy concurrent with and due to spinal stenosis of thoracic region: Plan: #. Myelopathy concurrent with and due to spinal stenosis of thoracic region #. Status post decompression and fusion of T2-L1 by Dr. Mejía on 02/15/2022 PT/OT, pain management, DVT prophylaxis per primary team. Incentive spirometer Labs in a.m., watch for ABL anemia --hemoglobin fairly stable. Patient reports pain under control. Patient reports an improvement of BLE numbness. #. History of A. fib Patient on Xarelto at home, to be resumed upon clearance by Ortho. #. Diabetes Last A1c in September 08.0, update A1c, glycemic pharmacy on board for management. #. DVT prophylaxis: Per primary team #. Full code Admission and Anticipated Discharge Date Admission Date: February 15, 2022 Subjective Patient seen and examined at bedside as a follow-up of myelopathy concurrent with and due to spinal stenosis of thoracic region status post T2-L1 surgery by Dr. Mejía on 02/15/2022. Patient was lying in bed, on room air, NAD, no new acute events overnight. Patient reports moving gas, no bowel movement yet. Patient reports eating okay. Patient denies any new acute events overnight. Patient denies any headache/dizziness/chest pain/palpitation/other review of symptoms. Physical Exam Physical Exam: GENERAL: Alert and oriented x3. NAD, on RA. HEENT: No pallor, no icterus. Pupils equal, round and reactive to light. Oral mucosa moist. NECK: No JVD, no neck masses. HEART: S1 and S2 heard. Regular rate and rhythm. No murmur, no gallop. RESPIRATORY SYSTEM: Normal AP diameter. No accessory muscle use. No wheezing, no crackles. ABDOMEN: Soft, bowel sounds present, nontender, no distention. CENTRAL NERVOUS SYSTEM: No facial droop. Speech is clear. Obeys simple commands. Moves extremities. EXTREMITIES: No edema, no erythema seen. Mid back with clean dressing without soakage. TREASURE drain with moderate serosanguineous collection noted. Results & Data Results & Data ([facility]) Vital Signs (Past 12 Hours) Vital Signs Temp Pulse Resp BP Pulse Ox 02/16/22 15:41 36.6 C 96 H 16 122/73 97 02/16/22 11:48 36.7 C 101 H 16 124/81 97 02/16/22 07:28 36.5 C 93 H 16 138/74 96
[2022-02-16] MEDS: DIGOXIN 0.25 MG TAB PO SCH (17:44)
[2022-02-16] MEDS: DOCUSATE SODIUM/SENNA 50/8.6MG TAB PO SCH (20:19)
[2022-02-16] MEDS: SIMVASTATIN 20 MG TAB PO SCH (20:19)
[2022-02-16] MEDS ORDERED: INSULIN GLARGINE SOLOSTAR 100 UNITS/ML 3 ML PEN SC SCH (21:00)
[2022-02-17] MEDS: POLYETHYLENE (MIRALAX) 17 GM PACK PO SCH ×4 (00:02→17:46)
[2022-02-17 07:48] LABS: Hematocrit (blood only) 37.3 % (42-52); Hemoglobin 12.1 g/dL (14.0-18.0); Mean Corpuscular Hemoglobin 26.8 pg (25-34); Mean Corpuscular Hgb Conc 32.4 g/dL (32-36); Mean Corpuscular Volume 82.7 fL (80-100); Mean Platelet Volume 9.8 fL (7.4-10.4); Platelet Count 268 K/uL (130-400); RDW Coefficient of Variation 14.2 % (11.5-14.5); RDW Standard Deviation 43.2 fL (36.4-46.3); Red Blood Count 4.51 M/uL (4.7-6.1); White Blood Count 16.47 K/uL (4.8-10.8)
[2022-02-17 08:12] LABS: Magnesium 1.7 mg/dl (1.7-2.4); Potassium 3.6 mmol/L (3.5-5.1)
[2022-02-17] MEDS: METOPROLOL SUCC 50MG EXT REL TAB PO SCH ×2 (08:29→20:35)
[2022-02-17] MEDS: dexAMETHasone 6 MG in SYRINGE 0 ML IV SCH (08:29)
[2022-02-17] MEDS: POTASSIUM CHLORIDE 10 MEQ TABCR PO SCH (08:30)
[2022-02-17] MEDS: INSULIN ASPART PER UNIT SC SCH ×4 (08:56→21:13)
[2022-02-17] MEDS: metFORMIN HCL 500 MG TAB PO SCH ×2 (09:28→17:46)
[2022-02-17] MEDS: INSULIN GLARGINE SOLOSTAR 100 UNITS/ML 3 ML PEN SC SCH (09:29)
[2022-02-17] MEDS ORDERED: bisacodyL 5 MG TABEC PO ONE (09:55)
--- NOTE | 2022-02-17 09:55 | Orthopedic Progress Note ---
Date of Service February 17, 2022 Assessment & Plan (1) Myelopathy concurrent with and due to spinal stenosis of thoracic region: Plan: At this time we will continue physical therapy advance his bowel regiment. Monitor his TREASURE output. Hopefully he will be a candidate for discharge home tomorrow. Admission and Anticipated Discharge Date Admission Date: February 15, 2022 Subjective Back pain controlled leg symptoms improved. Describing some disc comfort in the abdomen. There is no bowel movement as of yet. Physical Exam Physical Exam: Patient is in the chair at the bedside. Is good strength testing lower extremities. His abdomen is soft. Results & Data ([facility]) Vital Signs (Past 12 Hours) Vital Signs Temp Pulse Resp BP Pulse Ox 02/17/22 07:53 36.8 C 85 16 115/67 98
[2022-02-17] MEDS ORDERED: POTASSIUM CHLORIDE CRTAB 20 MEQ TABCR PO STA (10:31)
[2022-02-17] MEDS: DIGOXIN 0.25 MG TAB PO SCH (16:18)
--- NOTE | 2022-02-17 18:38 | Hospitalist Progress Note ---
Date of Service February 17, 2022 Assessment & Plan (1) Myelopathy concurrent with and due to spinal stenosis of thoracic region: Plan: #. Myelopathy concurrent with and due to spinal stenosis of thoracic region #. Status post decompression and fusion of T2-L1 by Dr. Mejía on 02/15/2022 PT/OT, pain management, DVT prophylaxis per primary team. Incentive spirometer Labs in a.m., watch for ABL anemia --hemoglobin fairly stable. Patient reports pain under control. Patient reports an improvement of BLE numbness. #. History of A. fib Patient on Xarelto at home, to be resumed upon clearance by Ortho. #. Diabetes Last A1c in September 08.0, update A1c, glycemic pharmacy on board for management. #. DVT prophylaxis: Per primary team #. Full code Admission and Anticipated Discharge Date Admission Date: February 15, 2022 Subjective Patient seen and examined at bedside as a follow-up of myelopathy concurrent with and due to spinal stenosis of thoracic region status post T2-L1 surgery by Dr. Mejía on 02/15/2022. Patient was lying in bed, on room air, NAD, no new acute events overnight. Patient reports moving gas, no bowel movement yet. Patient reports eating okay. Patient denies any new acute events overnight.Pt reports feeling better. Patient denies any headache/dizziness/chest pain/palpitation/other review of symptoms. Physical Exam Physical Exam: GENERAL: Alert and oriented x3. NAD, on RA. HEENT: No pallor, no icterus. Pupils equal, round and reactive to light. Oral mucosa moist. NECK: No JVD, no neck masses. HEART: S1 and S2 heard. Regular rate and rhythm. No murmur, no gallop. RESPIRATORY SYSTEM: Normal AP diameter. No accessory muscle use. No wheezing, no crackles. ABDOMEN: Soft, bowel sounds present, nontender, no distention. CENTRAL NERVOUS SYSTEM: No facial droop. Speech is clear. Obeys simple commands. Moves extremities. EXTREMITIES: No edema, no erythema seen. Mid back with clean dressing without soakage. TREASURE drain with moderate s erosanguineous collection noted. Results & Data Results & Data ([facility]) Vital Signs (Past 12 Hours) Vital Signs Temp Pulse Resp BP Pulse Ox 02/17/22 15:04 36.5 C 90 16 107/62 97 02/17/22 07:53 36.8 C 85 16 115/67 98
[2022-02-17] MEDS: SIMVASTATIN 20 MG TAB PO SCH (20:35)
[2022-02-17] MEDS: DOCUSATE SODIUM/SENNA 50/8.6MG TAB PO SCH (20:35)
[2022-02-18] MEDS: METOPROLOL SUCC 50MG EXT REL TAB PO SCH (08:22)
[2022-02-18] MEDS: POTASSIUM CHLORIDE 10 MEQ TABCR PO SCH (08:22)
[2022-02-18] MEDS: metFORMIN HCL 500 MG TAB PO SCH (08:22)
[2022-02-18] MEDS: dexAMETHasone 6 MG in SYRINGE 0 ML IV SCH (08:23)
[2022-02-18] MEDS: INSULIN GLARGINE SOLOSTAR 100 UNITS/ML 3 ML PEN SC SCH (08:24)
[2022-02-18] MEDS: INSULIN ASPART PER UNIT SC SCH ×2 (08:26→11:48)
[2022-02-18] MEDS ORDERED: INSULIN GLARGINE SOLOSTAR 100 UNITS/ML 3 ML PEN SC SCH (09:00)
--- NOTE | 2022-02-18 09:29 | Discharge Summary ---
Date of Service February 18, 2022 Admission HPI Per Admitting Provider This is a 72-year-old male well-known to me the presents with marked decline in status and inability to ambulate. Updated imaging demonstrates evidence of severe thoracic stenosis and myelopathy and subsequent is here for surgical invention. Admission Exam (Per Admitting) Constitutional + thin Eyes normal visual bryan by confrontation Neck normal visual inspection Respiratory normal respiratory effort Cardiovascular Extremities: normal capillary refill Gastrointestinal (Abdomen) Inspection/Auscultation: abdomen normal to inspection Musculoskeletal Extremities: extremities normal to inspection Skin normal turgor Neurologic normal touch/pain/proprioception and moves all extremities Psychiatric Eye Contact: good eye contact Discharge Data Consultations 02/15/22 13:13 Consult Hospitalist Routine Procedures Performed Operation Date: 02/15/22 09:30 Actual Procedures p T11-T12 Decompression, T11-L2 Fusion, Spinal Cord Monitoring(Not Applicable) - Robb Mejía DO s T12-L1 Hardware Removal,(Not Applicable) - Robb Mejía DO Hospital Course (1) Myelopathy concurrent with and due to spinal stenosis of thoracic region: Sj is being discharged home on postoperative day 3 status post thoracolumbar decompression instrumented fusion secondary to thoracic myelopathy. His leg symptoms are greatly improved. He states they feel stronger. He is doing well in physical therapy. Lab values have been stable throughout his postoperative course. He has had an uneventful hospital course as well. Discharge Instructions ACTIVITY RECOMMENDATIONS: SELF CARE INSTRUCTIONS AFTER THORACIC/LUMBAR FUSIONS 1. You may walk to your tolerance. It is good exercise for your legs and back. Expect some back and intermittent leg aches and pains. 2. You may perform "counter-top" level activities (make a sandwich, flory with a project, etc.). 3. No bending or lifting of more than 10 pounds or back twisting of any nature (roll like a log when turning in bed). 4. You may ride in a car for 20-30 minutes at a time. No driving until after your first visit with your doctor. 5. Frequent changes of position and restricting sitting to 30 minutes at a time will help limit the amount of back spasms and stiffness you may experience. 6. You may discontinue the use of ambulatory aids (cane, crutches, etc.) once your strength and confidence allow. 7. You may printed circuit board preassembler the shower and let water strike your incision when you arrive home at least once daily. Do not take a tub bath, sit in a hot tub or go into a swimming pool until after your first recheck in the office. SPECIAL CARE INSTRUCTIONS: VERY IMPORTANT TO READ AND REVIEW A. Your surgical incision has been closed with a cosmetic suture under the skin that will dissolve in about 6 weeks. In 14 days, you can use a pair of clean scissors and cut the suture that is left outside of the skin at the ends of your incision. 1. The small skin tapes can be removed 7 days after surgery if they have not fallen off by that point. 2. You may keep the wound open to air as much as possible to promote healing after post-op day number 5 unless told otherwise by your doctor. 3. If you think the wound looks like it is becoming infected (redness or worsening drainage) and/or you are experiencing fever, chill or worsening back pain and muscle spasms, contact the office so that we may evaluate you as soon as possible. B. Complications are uncommon, but please contact us if you have any signs or symptoms of: 1. wound infection (fever higher than 102.5 degrees F, redness, separation of wound, drainage, or increasing pain from the incision) 2. blood clots in legs (pain, swelling, redness and warmth in legs) 3. urinary tract infection (fever higher than 102.5 degrees F, burning upon urination or increased frequency of urination) 4. nerve problems (inability to walk on your toes or heels, numbness, loss of bowel or bladder control) 5. any other symptoms that concern you C. Please call the office at if you have any concerns or questions about your operation or recovery. D. No smoking! Smoking drastically decreases the chance of a solid fusion. E. Do not take any anti-inflammatory medications (Indocin, Advil, Motrin, Aspirin, Naprosyn, etc.) as these may inhibit the chance of a solid fusion. Tylenol is okay to take for pain. MANAGING PAIN AFTER SPINAL SURGERY 1. Narcotic medication is intended for short-term use and will be provided for surgical pain. Surgical pain usually lasts for a period of 4-6 weeks. Narcotic medication includes Percocet, Vicodin, Darvocet, Tylenol #3 or Lortab. 2. Longer-term pain is more appropriately treated with non-narcotic medication such as Tylenol ES. 3. Muscle spasm is not appropriately treated with narcotics. Muscle relaxers such as Soma, Flexeril or Skelaxin can be used along with Tylenol ES. 4. Remember that we all live with some "aches and pains". This is not unusual or uncommon after an injury or as we get older. a. Back pain is expected and may include muscle spasms for 4 to 6 weeks after surgery. The pain should gradually improve. If the pain worsens for no apparent reason, please contact the office. b. Intermittent leg pain may also be experienced and should not be concerned about unless it worsens for no apparent reason. If so, please contact the office. 5. We will provide appropriate medication within the normal guidelines of their prescribed use. We will also be very cautious and aware of potential abuse and extended duration of patients' medication needs. a. Pain medications are for your comfort and to assist with sleep and rest so that the tissue can heal. They are not provided in order to return to normal activity and should not be used through the day. To do so or worsening pain at night can result from ongoing tissue damage and development of tolerance to the prescribed medicine. 6. Please allow 2-3 days to process refills. Prescriptions will not be mailed but must be picked up at the office. FOLLOW UP VISIT: Keep your scheduled follow-up appointment. Any questions, please call the office at .
--- NOTE | 2022-02-18 17:18 | Hospitalist Progress Note ---
Date of Service February 18, 2022 Assessment & Plan (1) Myelopathy concurrent with and due to spinal stenosis of thoracic region: Plan: #. Myelopathy concurrent with and due to spinal stenosis of thoracic region #. Status post decompression and fusion of T2-L1 by Dr. Mejía on 02/15/2022 PT/OT, pain management, DVT prophylaxis per primary team. Incentive spirometer Labs in a.m., watch for ABL anemia --hemoglobin fairly stable. Patient reports pain under control. Patient reports an improvement of BLE numbness. #. History of A. fib Patient on Xarelto at home, to be resumed upon clearance by Ortho. #. Diabetes Last A1c in September 08.0, update A1c, glycemic pharmacy on board for management. #. DVT prophylaxis: Per primary team #. Full code Admission and Anticipated Discharge Date Admission Date: February 15, 2022 Subjective Patient seen and examined at bedside as a follow-up of myelopathy concurrent with and due to spinal stenosis of thoracic region status post T2-L1 surgery by Dr. Mejía on 02/15/2022. Patient was lying in bed, on room air, NAD, no new acute events overnight. Patient reports moving bowel. Patient reports eating okay. Patient denies any new acute events overnight.Pt reports feeling better. Patient denies any headache/dizziness/chest pain/palpitation/other review of symptoms. Physical Exam Physical Exam: GENERAL: Alert and oriented x3. NAD, on RA. HEENT: No pallor, no icterus. Pupils equal, round and reactive to light. Oral mucosa moist. NECK: No JVD, no neck masses. HEART: S1 and S2 heard. Regular rate and rhythm. No murmur, no gallop. RESPIRATORY SYSTEM: Normal AP diameter. No accessory muscle use. No wheezing, no crackles. ABDOMEN: Soft, bowel sounds present, nontender, no distention. CENTRAL NERVOUS SYSTEM: No facial droop. Speech is clear. Obeys simple commands. Moves extremities. EXTREMITIES: No edema, no erythema seen. Mid back with clean dressing without soakage. TREASURE drain with minimal serosanguineous collection noted. Results & Data Results & Data ([facility]) Vital Signs (Past 12 Hours) Vital Signs Temp Pulse Pulse Resp BP Pulse Ox 02/18/22 11:51 36.6 C 89 70 18 118/72 95 02/18/22 11:00 36.6 C 70 18 118/72 95 02/18/22 07:48 36.5 C 62 18 123/81 92
== END 2022-02-18 13:04 | disposition home or self-care (01) | DRG 460 ==
LOC: ASU 07:32 → 3W 11:40

== ENCOUNTER 2023-01-10 06:21 | Observation (INO) ==
--- NOTE | 2023-01-02 10:58 | Anesthesiology Consultation ---
Date of Service January 02, 2023 Assessment & Plan (1) Encounter for pre-operative examination: - Check BSG AM DOS - COVID screening: Per assessment on 01/01: No known COVID-19 positive contacts or current COVID-19 related symptoms. Travel screen negative. Patient vaccinated. At surgeon discretion if preop Covid testing being done. - Abnormal preop EKG: Preop EKG performed 12/19/22 shows TWA, consider anterior ischemia. Note written to cardiology regarding abnormal preop EKG (Dr. Hughes/Sarabjit)- Awaiting response. Chart Review Chart Review: entry operator initiated History Surgery Operation Date: 01/10/23 07:45 Proposed Procedures p C3-C4 and C6-C7 Anterior Cervical Discectomy and Fusion, C4-C6 Hardware Removal, Spinal Cord Monitoring - Robb Mejía DO Height/Weight Height: 6 ft Weight: 83.915 kg Allergies Allergy/AdvReac Type Severity Reaction Status Date / Time No Known Allergies Allergy Verified 01/01/23 07:46 Medications Home Medications Medication Instructions Recorded Confirmed Last Taken digoxin 250 mcg (0.25 mg) tablet 250 mcg PO QAM 08/22/21 01/01/23 02/15/22 05:30 empagliflozin 25 mg tablet 25 mg PO QAM 08/22/21 01/01/23 02/13/22 08:00 (Jardiance) insulin glargine 100 unit/mL (3 22 unit subcut QPM 08/22/21 01/01/23 02/14/22 22:00 mL) subcutaneous pen (Basaglar KwikPen U-100 Insulin) metformin 500 mg tablet 500 mg PO BID 08/22/21 01/01/23 02/14/22 22:00 metoprolol succinate 50 mg 50 mg PO UD 08/22/21 01/01/23 02/15/22 05:30 tablet,extended release 24 hr potassium chloride 10 mEq 10 meq PO QAM 08/22/21 01/01/23 02/14/22 08:00 tablet,extended release semaglutide 0.25 mg or 0.5 mg (2 0.5 mg subcut Q7D 08/22/21 01/01/23 02/11/22 22:00 mg/1.5 mL) subcutaneous pen injector (Ozempic) simvastatin 20 mg tablet 20 mg PO QPM 08/22/21 01/01/23 02/14/22 22:00 rivaroxaban 20 mg tablet (Xarelto) 20 mg PO QPM 01/01/23 01/01/23 Unknown Past Medical History Medical History Arthritis Atrial fibrillation Reason for Xarelto Follows with Dr. Hughes Diabetes mellitus, type 2 History of COVID-19 08/2022 (home test)- low grade fever, body aches >t x w/paxlovid, resolved in 2-3 days History of kidney stones Hyperlipidemia Hypertension Per cardio/available records, patient denies Spinal stenosis Past Family History Family History Other No family history of adverse response to anesthesia Past Surgical History Surgical History Fusion of spine LUMBAR x4 CERVICAL x1 (Good ROM per pt) History of appendectomy History of cardiac cath REMOTE > no stents History of cardioversion Multiple History of cataract surgery RT/LEFT History of colonoscopy History of herniorrhaphy x3 History of lithotripsy History of revision of total knee arthroplasty LEFT History of tooth extraction History of total knee replacement LEFT x2 Social History Smoking Status: Never smoker Do You Dip or Chew Tobacco: No Hx Alcohol Use: Yes Alcohol type: wine alcohol intake frequency: holidays/special occasions only Hx Substance Use: No substance use type: does not use Lab Results Anesthesia Preop Results Results Anesthesia Widget: WBC 10.45 K/ul (4.8-10.8) 12/19/22 Hgb 13.8 g/dl (14.0-18.0) L 12/19/22 Hct 43.7 % (42.0-52.0) 12/19/22 Plt 261 K/uL (130-400) 12/19/22 Na 138 mmol/L (136-145) 12/19/22 K 3.9 mmol/L (3.5-5.1) 12/19/22 Cl 101 mmol/L (98-107) 12/19/22 CO2 30 mmol/L (21-32) 12/19/22 BUN 21 mg/dl (6-23) 12/19/22 Creat 0.72 mg/dl (0.6-1.4) 12/19/22 Glucose Level 212 mg/dl (70-99(Fasting)) H 12/19/22 PT 11.9 Seconds (9.0-12.0) 12/19/22 PTT 32.0 Seconds (21.0-31.0) H 12/19/22 INR 1.1 (0.9-1.1) 12/19/22 Urine Color Yellow 12/19/22 Urine Appearance Clear (Clear) 12/19/22 Urine pH 5.5 (4.5-7.5) 12/19/22 Urine Specific [place] 1.033 (1.000-1.030) H 12/19/22 Urine Protein Negative (Negative) 12/19/22 Urine Glucose (UA) 3+ (Negative) H 12/19/22 Urine Ketones Negative (Negative) 12/19/22 Urine Blood Negative (Negative) 12/19/22 Urine Nitrite Negative (Negative) 12/19/22 Urine Bilirubin Negative (Negative) 12/19/22 Urine Urobilinogen Negative (Negative) 12/19/22 Urine Leukocyte Esterase Negative (Negative) 12/19/22 Blood Type O Positive 12/19/22 Antibody Screen NEGATIVE 12/19/22 Testing Electrocardiogram Date: 12/19/22 A. fib at 96bpm. TWA, consider anterior ischemia. Chest X-Ray Date: 12/19/22 Findings: + NAD Echocardiogram Date: 03/02/21 EF:55% LV Function:normal RWMA:+ none Other Findings:no LVH Valvular Disease:+ MR (mild ) Moderate left and right atrial enlargement. Mild TR. Borderline pulmonary HTN. Estimated PASP 35-40mmHg. Diastolic function is indeterminate due to atrial fibrillation.
[2023-01-10] MEDS ORDERED: fentaNYL citrate PF 100 MCG/2 ML VIAL ONE (07:23)
[2023-01-10] MEDS ORDERED: MIDAZOLAM HCL 1 MG/ML 2ML VIAL ONE (07:23)
[2023-01-10] MEDS ORDERED: ONDANSETRON INJ 2 MG/ML 2 ML VIAL IV PRN ×2 (07:25→12:03)
[2023-01-10] MEDS ORDERED: ATROPINE SULFATE 0.1 MG/ML 10ML SYR IV PRN (07:25)
[2023-01-10] MEDS ORDERED: ePHEDrine sulfate 50 MG/ML AMP IV PRN (07:25)
[2023-01-10] MEDS ORDERED: HYDROmorphone INJ 2 MG/ML SYR/VIAL IV PRN (07:25)
--- NOTE | 2023-01-10 07:28 | History & Physical Bridge Note ---
Date of Service January 10, 2023 History & Physical Bridge Note I have examined the patient, reviewed the History & Physical and in the interval since the performance of the History & Physical I have noted the following changes of clinical significance: no changes noted
--- NOTE | 2023-01-10 07:29 | History & Physical Report ---
Date of Service January 10, 2023 Assessment & Plan (1) Cervical stenosis of spinal canal: Plan: C3-C4 and C6-C7 anterior cervical discectomy and fusion, C4-C6 hardware removal History of Present Illness Chief Complaint: Neck and arm pain Primary Care Provider: Angela Lopez MD This is a 72-year-old male who presents with chronic persistent neck and arm pain after failing extensive course of nonoperative care is here for surgical invention. Allergies Allergy/AdvReac Type Severity Reaction Status Date / Time No Known Allergies Allergy Verified 01/01/23 07:46 Home Medications Medication Instructions Recorded Confirmed Type digoxin 250 mcg (0.25 mg) tablet 250 mcg PO QAM 08/22/21 01/10/23 History empagliflozin 25 mg tablet 25 mg PO QAM 08/22/21 01/10/23 History (Jardiance) insulin glargine 100 unit/mL (3 22 unit subcut QPM 08/22/21 01/10/23 History mL) subcutaneous pen (Basaglar KwikPen U-100 Insulin) metformin 500 mg tablet 500 mg PO BID 08/22/21 01/10/23 History metoprolol succinate 50 mg 50 mg PO UD 08/22/21 01/10/23 History tablet,extended release 24 hr potassium chloride 10 mEq 10 meq PO QAM 08/22/21 01/10/23 History tablet,extended release semaglutide 0.25 mg or 0.5 mg (2 0.5 mg subcut Q7D 08/22/21 01/10/23 History mg/1.5 mL) subcutaneous pen injector (Ozempic) simvastatin 20 mg tablet 20 mg PO QPM 08/22/21 01/10/23 History rivaroxaban 20 mg tablet (Xarelto) 20 mg PO QPM 01/01/23 01/10/23 History Past Med/Surg History Medical History Arthritis Atrial fibrillation Reason for Xarelto Follows with Dr. Hughes Diabetes mellitus, type 2 History of COVID-19 08/2022 (home test)- low grade fever, body aches >t x w/paxlovid, resolved in 2-3 days History of kidney stones Hyperlipidemia Hypertension Per cardio/available records, patient denies Spinal stenosis Surgical History Fusion of spine LUMBAR x4 CERVICAL x1 (Good ROM per pt) History of appendectomy History of cardiac cath REMOTE > no stents History of cardioversion Multiple History of cataract surgery RT/LEFT History of colonoscopy History of herniorrhaphy x3 History of lithotripsy History of revision of total knee arthroplasty LEFT History of tooth extraction History of total knee replacement LEFT x2 Family History Other No family history of adverse response to anesthesia Social History Smoking Status: Never smoker Second Hand Exposure: Yes (HX GROWING UP); Do You Dip or Chew Tobacco: No; Tobacco Cessation Education Requested by Patient: No Hx Alcohol Use: Yes Alcohol type: wine Hx Substance Use: No Preferred Language: Azeri Communication Ability: Effective Environmental Construction Engineer Required: No Beliefs That Will Affect Care: None marital status: Current Living Situation: Spouse Other Information That Helps Us Care for You: No Feels Safe at Home: Yes Safety Concerns: Feels Safe At This Time Assistive Devices: Cane and Glasses Physical Exam Physical Exam: Patient is alert and oriented Heart regular rhythm Lungs clear Results & Data Results & Data Vital Signs (Past 12 Hours) Vital Signs Temp Pulse Resp BP Pulse Ox O2 Del Method 01/10/23 06:48 36.8 C 94 H 18 147/99 H 97 Room Air
[2023-01-10] MEDS ORDERED: ceFAZolin 330 MG/ML 1 GM VIAL ONE (07:36)
[2023-01-10] MEDS ORDERED: DEXAMETHASONE SOD INJ 4 MG/ML VIAL ONE ×2 (08:28→10:15)
[2023-01-10] MEDS ORDERED: LIDOCAINE 2% 2 ML VIAL/AMP(20MG/ML) INFIL ONE (08:28)
[2023-01-10] MEDS ORDERED: ROCURONIUM BROMIDE 10 MG/ML 5 ML VIAL IV ONE ×6 (08:28→09:40)
[2023-01-10] MEDS ORDERED: PROPOFOL IV EMULSION 10 MG/ML 20 ML VIAL IV ONE (08:28)
[2023-01-10] MEDS ORDERED: FLOSEAL HEMOSTATIC MATRIX 10ML TOP ONE (08:34)
[2023-01-10] MEDS ORDERED: ePHEDrine sulfate 50 MG/ML AMP ONE (09:10)
[2023-01-10] MEDS ORDERED: SUGAMMADEX SODIUM 200 MG/2 ML VIAL IV ONE (10:15)
--- NOTE | 2023-01-10 10:20 | Operative Report ---
Post Operative Report Pre & Post Diagnosis Operation Date: 01/10/23 07:45 Pre-Op Diagnosis: Cervical spinal stenosis with myelopathy Post-Op Diagnosis: Same I identified the patient and participated in the time-out.: Yes Procedure Operation Date: 01/10/23 07:45 Actual Procedures #1 removal of anterior cervical plate C4-C6. #2 exploration of fusion C4-C6. #3 anterior cervical discectomy with bilateral foraminotomies C3-C4 C6-C7. #4 anterior cervical arthrodesis C3-C4 C6-C7. #5 placement of Spira 9 mm cage at C3-C4 and 8 mm cage at C6-C7. #6 application of K2 M plate and screws from C3- C7. Surgeon Robb Mejía, Hockey Scout Radha Jensen Estimated Blood Loss 10 Findings Consistent with Post-Op Diagnosis Specimens None Indications This is a 72-year-old male who presents above-mentioned diagnosis after failed course of nonoperative care is here for surgical invention. Description of Procedure Patient was met with identified informed consent obtained. Patient was then taken to the operative suite underwent a patient placed in spine position jacks table with head [place] sanches. The anterior cervical spine was then prepped and draped in a sterile fashion. An incision was then made along the right anterior aspect extending from C3-C5 in a longitudinal fashion. Blunt dissection was then carried out down to and exposing the anterior cervical spine from C3-C7. Self-retaining retractors placed. Then proceeded to remove the anterior cervical plate from C3-4 to C6. Then explored the fusion mass noting it to be stable and intact. Informed complete discectomy of C3-C4 out to the uncovertebral's bilaterally including bilateral foraminotomies and removal of all posterior annular fibers longitudinal ligament. The endplates were then burred to subcortical bleeding bone and a 9 mm Spira cage with I factor tapped in position. [place] distraction apparatus was utilized to assist in visualization. I then proceeded to C6-C7. Again complete discectomy performed out to the uncovertebral's bilaterally. [place] distracting pins again utilized. Removed all posterior annular fibers longitudinal ligament and bilateral foraminotomies performed. Endplates were then burred to subcortical being bone and an 8 mm Spira cage with I factor tapped in position. Distracting apparatus was removed all anterior osteophytes burred to a smooth cortical surface and a K2 M plate and screws were applied from C3-C7 with the assistance of fluoroscopy. The incision was then copiously irrigated explored to ensure no damage to surrounding structures or remaining bleeding. 10 round TREASURE drain inserted. The incision then closed with 2 Vicryl in a fashion of 4 Monocryl for final closure. Steri-Strip sterile dressing placed. Patient awakened taken to PACU in stable condition. Please note spinal cord monitoring visualized at the procedure no changes noted. Lastly Radha Jensen was present at the entire surgeon while the patient positioning complex portion of the surgery and final skin closure. I attest to the content of the Intraoperative Record and any orders documented therein. Any exceptions are noted below.
--- NOTE | 2023-01-10 10:36 | Fluoroscopy Report ---
FL cervical 2-3V CLINICAL HISTORY: ACDF C3-4/C6-7 C4-6 RH COMPARISON STUDY: None FLUOROSCOPY TIME: 10.4 seconds FLUOROSCOPY IMAGES: 2 EXPOSURE DOSE: 1.03 mGy Air Kerma FINDINGS: Anterior plate and screw fusion hardware is noted at what appears to be the C3-C7 levels wi th discectomy changes. Anterior surgical sponge in the operative bed with endotracheal tube. Hardware appears intact. No acute fracture or malalignment identified. Note that the images were submitted fo llowing completion of the surgery. Surgical drainage catheter is present. IMPRESSION: Fluoroscopic assistance as above. ACT 112: Negative or not required by law. Electronically signed by: Alex Godoy M.D. 01/10/2023 10:35 AM
[2023-01-10] MEDS ORDERED: ONDANSETRON INJ 2 MG/ML 2 ML VIAL ONE (10:46)
[2023-01-10] MEDS: fentaNYL citrate PF 100 MCG/2 ML VIAL IV PRN ×2 (11:07→11:13)
--- NOTE | 2023-01-10 12:01 | Anesthesiology Progress Note ---
Date of Service January 10, 2023 Anesthesia Post Procedure Vital Signs Vital Signs: Temp Pulse Pulse Resp BP BP Pulse Ox 01/10/23 11:55 113 H 21 138/89 99 01/10/23 11:40 108 H 24 153/80 H 99 01/10/23 11:30 36.1 C L 100 H 19 143/91 H 98 01/10/23 11:20 100 H 15 152/98 H 99 01/10/23 11:10 104 H 14 138/90 99 01/10/23 11:00 108 H 20 155/93 H 99 01/10/23 10:50 100 H 16 152/101 H 93 01/10/23 10:40 93 H 21 145/91 H 94 01/10/23 10:34 36.0 C L 75 13 145/110 H 97 01/10/23 06:48 36.8 C 94 H 18 147/99 H 97 O2 Del Method O2 Flow Rate 01/10/23 11:55 Nasal Cannula 2 01/10/23 11:40 Nasal Cannula 2 01/10/23 11:30 Nasal Cannula 2 01/10/23 11:20 Nasal Cannula 2 01/10/23 11:10 Nasal Cannula 2 01/10/23 11:00 Nasal Cannula 2 01/10/23 10:50 Nasal Cannula 2 01/10/23 10:40 Nasal Cannula 2 01/10/23 10:34 Nasal Cannula 4 01/10/23 06:48 Room Air Pain Intensity Posterior Neck: Pain Intensity: 3 Transfer of Care Handoff Completed per policy Notes Mental Status: alert / awake / arousable and participated in evaluation Patient Amnestic to Procedure: Yes Nausea / Vomiting: adequately controlled Pain: adequately controlled Airway Patency, RR, SpO2: stable & adequate BP & HR: stable & adequate Hydration State: stable & adequate Anesthetic Complications: no major complications apparent and Pt Satisfied with anesthetic care
[2023-01-10] MEDS ORDERED: PHARMACY GLYCEMIC MGMT CONSULT PRN (12:03)
[2023-01-10] MEDS ORDERED: RACEPINEPHRINE 2.25% NEBU SOLN 0.5 ML VIAL INH PRN (12:03)
[2023-01-10] MEDS ORDERED: ONDANSETRON 4 MG OD TAB PO PRN (12:03)
[2023-01-10] MEDS ORDERED: NALOXONE HCL 0.4 MG/1 ML VIAL/CARP IV PRN (12:03)
[2023-01-10] MEDS ORDERED: NON-FORMULARY MEDICATION (Semaglutide [Ozempic] 0.25 mg or 0.5 mg(2 mg/1.5 mL) Pen Injecto SQ SCH (12:03)
[2023-01-10] MEDS ORDERED: diphenhydrAMINE Capsule 25 MG CAP PO PRN (12:03)
[2023-01-10] MEDS ORDERED: HYDROmorphone INJ 1 MG/ML SYRINGE IV PRN (12:03)
[2023-01-10] MEDS ORDERED: ACETAMINOPHEN 500 MG TAB PO PRN (12:03)
[2023-01-10] MEDS ORDERED: dexAMETHasone 8 MG in SYRINGE 0 ML IV PRN (12:03)
[2023-01-10] MEDS ORDERED: bisacodyL 10 MG SUPP PR PRN (12:03)
[2023-01-10] MEDS ORDERED: ACETAMINOPHEN 1,000 MG/100 ML VIAL IV PRN (12:03)
[2023-01-10] MEDS ORDERED: ALUMINUM/MAGNESIUM SUSP 30 ML UDC PO PRN (12:03)
[2023-01-10] MEDS ORDERED: HYDROmorphone INJ 0.5 MG/0.5 ML SYR IV PRN (12:03)
[2023-01-10] MEDS ORDERED: DO NOT ADMINISTER PNEUMOCOCCAL VACCINE PRN (12:03)
[2023-01-10] MEDS ORDERED: LORazepam 0.5 MG TAB PO PRN (12:03)
[2023-01-10] MEDS ORDERED: METOCLOPRAMIDE HCL INJ 5 MG/ML 2 ML VIAL IV PRN (12:03)
[2023-01-10] MEDS ORDERED: hydrOXYzine HCl 25 MG TAB PO PRN (12:03)
[2023-01-10] MEDS ORDERED: FAMOTIDINE 20 MG TAB PO PRN (12:03)
[2023-01-10] MEDS ORDERED: DO NOT ADMINISTER FLU VACCINE PRN (12:03)
[2023-01-10] MEDS ORDERED: traMADol HCL 50 MG TABLET PO PRN (12:03)
[2023-01-10] MEDS ORDERED: oxyCODONE HCL IR 5 MG TAB (IMMEDIATE RELEASE) PO PRN (12:03)
[2023-01-10] MEDS ORDERED: LORazepam 2 MG/1 ML VIAL IV PRN (12:03)
[2023-01-10] MEDS ORDERED: MAGNESIUM HYDROXIDE SUSP 30 ML UDC PO PRN (12:03)
[2023-01-10] MEDS ORDERED: PROMETHAZINE HCL 12.5 MG in SODIUM CHLORIDE 0.9% 50 ML IV PRN (12:03)
[2023-01-10] MEDS ORDERED: SOD PHOSPHATE/SOD BIPHOSPHATE ENEMA 132 ML BTL PR PRN (12:03)
[2023-01-10] MEDS ORDERED: GLUCOSE 10 TAB/TUBE PO PRN (12:30)
[2023-01-10] MEDS ORDERED: GLUCAGON FOR INJ 1 MG VIAL IM PRN (12:30)
[2023-01-10] MEDS ORDERED: DEXTROSE 50% 50 ML SYRINGE IV PRN (12:30)
[2023-01-10] MEDS ORDERED: LANTUS PER UNIT CHARGE SC ONE (12:30)
[2023-01-10] MEDS ORDERED: GLUCOSE 40% GEL 15 GM TUBE PO PRN (12:30)
[2023-01-10] MEDS ORDERED: CARBOHYDRATES FOR HYPOGLYCEMIA PO PRN (12:30)
[2023-01-10] MEDS: SODIUM CHLORIDE 0.9% 1000ML 1,000 ML IV SCH (13:50)
[2023-01-10] MEDS: INSULIN ASPART PER UNIT CHARGE SC SCH ×3 (14:25→21:12)
--- NOTE | 2023-01-10 14:37 | Hospitalist Consultation ---
Date of Consultation January 10, 2023 Assessment & Plan (1) H/O cervical spine surgery: (2) Diabetes mellitus, type 2: (3) Atrial fibrillation: (4) Hyperlipidemia: Plan This is a 72yo M with a PMH of atrial fibrillation anticoagulated on Xarelto, DM type II, HTN, and other problems listed below who is status post ACDF by Dr. Mejía. H/o cervical spine surgery POD#0 s/p 1 removal of anterior cervical plate C4-C6, exploration of fusion C4- C6, anterior cervical discectomy with bilateral foraminotomies C3-C4 C6-C7 by Dr. Mejía Per ortho for pain control, wound care, anticoagulation and activities Monitor H&H (pre-op hgb 13.8) Continue incentive spirometry, PT/OT when appropriate DM II No recent a1c on file, will add to AM labs SSI while in-patient Glycemic consult placed by orthopedic service BSG AC HS Atrial fibrillation In rate controlled A fib on exam. Continue home digoxin, Toprol. Xarelto held since yesterday, plan to resume as soon as able per ortho surgery HLD Continue statin PCP: Follows with Dr. Lopez in [place], [place] Thank you for this consultation. We will follow the patient with you during their hospital stay. You can reach a [facility] the [facility] via [employer]. Supervising Physician Co-Signing Physician Notes I have seen and examined the patient and have discussed the case with the provider above. I agree with the assessment and plan as stated. 72 yo M with repeat ACDF procedure. Airway intact, speech normal. Normal mentation. Oxygen saturation is normal on 2LPM via nasal canula. Lungs CTAB. Cardiac exam reveals irregularly irregular rhythm. No m/g/r. Abdomen soft, NTND. Medications reviewed. Agree with recommendations above. Would restart Xarelto BRYAN given persistent afib. Thank you for this consultation. DO Anatoliy History of Present Illness Reason for Consultation: Postop medical management Attending Physician: Robb Mejía, History of Present Illness This is a 72yo M with a PMH of atrial fibrillation anticoagulated on Xarelto, DM type II, HTN, and other problems listed below who is status post ACDF by Dr. Mejía. Patient is feeling well postoperatively. Denies any numbness or tingling of bilateral upper extremity. Having some surgical site discomfort with deep inspiration but otherwise not having pain. Denies any fever, chills, lightheadedness, headache, chest pain, shortness of breath, nausea, vomiting, abdominal pain, diarrhea or constipation. Moore catheter in place. No recent medication changes. Receives primary care in [place], [place]. Allergies Allergy/AdvReac Type Severity Reaction Status Date / Time No Known Allergies Allergy Verified 01/01/23 07:46 Home Medications Medication Instructions Recorded Confirmed Type digoxin 250 mcg (0.25 mg) tablet 250 mcg PO QAM 08/22/21 01/10/23 History empagliflozin 25 mg tablet 25 mg PO QAM 08/22/21 01/10/23 History (Jardiance) insulin glargine 100 unit/mL (3 22 unit subcut QPM 08/22/21 01/10/23 History mL) subcutaneous pen (Basaglar KwikPen U-100 Insulin) metformin 500 mg tablet 500 mg PO BID 08/22/21 01/10/23 History metoprolol succinate 50 mg 50 mg PO UD 08/22/21 01/10/23 History tablet,extended release 24 hr potassium chloride 10 mEq 10 meq PO QAM 08/22/21 01/10/23 History tablet,extended release semaglutide 0.25 mg or 0.5 mg (2 0.5 mg subcut Q7D 08/22/21 01/10/23 History mg/1.5 mL) subcutaneous pen injector (Ozempic) simvastatin 20 mg tablet 20 mg PO QPM 08/22/21 01/10/23 History rivaroxaban 20 mg tablet (Xarelto) 20 mg PO QPM 01/01/23 01/10/23 History Patient History Medical History (Updated 01/10/23 @ 16:01 by Gini Lopez PA-C) Arthritis Atrial fibrillation Reason for Xarelto Follows with Dr. Hughes Diabetes mellitus, type 2 History of COVID-19 08/2022 (home test)- low grade fever, body aches >t x w/paxlovid, resolved in 2-3 days History of kidney stones Hyperlipidemia Hypertension Per cardio/available records, patient denies Spinal stenosis Surgical History (Updated 01/10/23 @ 16:01 by Gini Lopez PA-C) Fusion of spine LUMBAR x4 CERVICAL x1 (Good ROM per pt) History of appendectomy History of back surgery History of cardiac cath REMOTE > no stents History of cardioversion Multiple History of cataract surgery RT/LEFT History of colonoscopy History of herniorrhaphy x3 History of lithotripsy History of revision of total knee arthroplasty LEFT History of tooth extraction History of total knee replacement LEFT x2 Family History Other Heart disease No family history of adverse response to anesthesia Social History Smoking Status: Never smoker Second Hand Exposure: Yes (HX GROWING UP); Do You Dip or Chew Tobacco: No; Tobacco Cessation Education Requested by Patient: No Hx Alcohol Use: Yes Alcohol type: wine Hx Substance Use: No Preferred Language: Greek Communication Ability: Effective General Intern Required: No Beliefs That Will Affect Care: None marital status: Current Living Situation: Spouse Other Information That Helps Us Care for You: No Feels Safe at Home: Yes Safety Concerns: Feels Safe At This Time Assistive Devices: Cane and Glasses Review of Systems Review of Systems: At least ten systems reviewed and negative except as noted in the HPI. Physical Exam Physical Exam: General Appearance: WD/WN, vitals as above, NAD, sitting up in bed, pleasant, conversing easily Eyes: normal inspection, PERRL, conjunctivae normal ENT: external ear and nose normal, oropharynx normal Neck: + C-collar in place, anterior cervical spine dressing c/d/i, drain visualized Respiratory: normal respiratory effort, lungs clear to auscultation, no wheeze, rales, rhonchi. No accessory muscle use Cardiovascular: irregular rate & rhythm, no murmur appreciated, normal peripheral pulses Abdomen/GI: normal bowel sounds, soft, nontender, no hepatosplenomegaly : Moore Extremities/Musculoskeletal: no cyanosis or clubbing, extremities motor strength 5/5 Neurologic: PERRL, EOMI, accommodation nl, no face palsy, no dysarthria, CN's II-XI intact bilaterally and moves all extremities Psychiatric: A+Ox3, euthymic affect Skin: no rashes, normal color, warm/dry Results & Data Results & Data Vital Signs (Past 12 Hours) Vital Signs Temp Pulse Pulse Resp BP BP Pulse Ox 01/10/23 14:10 01/10/23 13:45 36.5 C 106 H 18 136/75 99 01/10/23 12:03 01/10/23 13:30 103 H 18 143/85 H 98 01/10/23 13:00 101 H 20 147/89 H 98 01/10/23 12:30 36.3 C L 94 H 18 141/93 H 98 01/10/23 12:45 36.3 C L 107 H 16 141/89 H 98 01/10/23 12:15 107 H 8 L 141/94 H 97 01/10/23 11:55 113 H 21 138/89 99 01/10/23 11:40 108 H 24 153/80 H 99 01/10/23 11:30 36.1 C L 100 H 19 143/91 H 98 01/10/23 11:20 100 H 15 152/98 H 99 01/10/23 11:10 104 H 14 138/90 99 01/10/23 11:00 108 H 20 155/93 H 99 01/10/23 10:50 100 H 16 152/101 H 93 01/10/23 10:40 93 H 21 145/91 H 94 01/10/23 10:34 36.0 C L 75 13 145/110 H 97 01/10/23 06:48 36.8 C 94 H 18 147/99 H 97 Pulse Ox O2 Del Method O2 Del Method O2 Flow Rate O2 Flow Rate 01/10/23 14:10 98 Nasal Cannula 2 01/10/23 13:45 Nasal Cannula 2 01/10/23 12:03 99 Nasal Cannula 2 01/10/23 13:30 Nasal Cannula 2 01/10/23 13:00 Nasal Cannula 2 01/10/23 12:30 Nasal Cannula 2 01/10/23 12:45 Nasal Cannula 2 01/10/23 12:15 Nasal Cannula 2 01/10/23 11:55 Nasal Cannula 2 01/10/23 11:40 Nasal Cannula 2 01/10/23 11:30 Nasal Cannula 2 01/10/23 11:20 Nasal Cannula 2 01/10/23 11:10 Nasal Cannula 2 01/10/23 11:00 Nasal Cannula 2 01/10/23 10:50 Nasal Cannula 2 01/10/23 10:40 Nasal Cannula 2 01/10/23 10:34 Nasal Cannula 4 01/10/23 06:48 Room Air Diagnostic Findings Cervical Spine X-Ray 01/10/23 07:45 FL cervical 2-3V CLINICAL HISTORY: ACDF C3-4/C6-7 C4-6 RH COMPARISON STUDY: None FLUOROSCOPY TIME: 10.4 seconds FLUOROSCOPY IMAGES: 2 EXPOSURE DOSE: 1.03 mGy Air Kerma FINDINGS: Anterior plate and screw fusion hardware is noted at what appears to be the C3-C7 levels with discectomy changes. Anterior surgical sponge in the operative bed with endotracheal tube. Hardware appears intact. No acute fracture or malalignment identified. Note that the images were submitted following completion of the surgery. Surgical drainage catheter is present. IMPRESSION: Fluoroscopic assistance as above. ACT 112: Negative or not required by law. Electronically signed by: Alex Godoy M.D. 01/10/2023 10:35 AM
--- NOTE | 2023-01-10 14:59 | Pharmacy Report ---
Pharmacy Glycemic Short Note 2 - Date of Service January 10, 2023 - Glycemic Short BSG Results (Last 24 hours): 01/10/23 01/10/23 06:50 10:41 POC Glucose 104 H 142 H OUTPATIENT ANTIDIABETIC REGIMEN: * Basaglar 22 units SC HS * Ozempic 0.5 mg SC every Saturday * Metformin 500 mg PO BIDM * Jardiance 25 mg PO AM * HbA1c pending for 01/11/23 ASSESSMENT: * 72 yo M admitted postoperatively on 01/10/23 following a spinal surgery with Dr. Mejía. Pharmacy has been consulted to assist with inpatient glycemic management. Patient is a Type 2 diabetic. Please refer to outpatient regimen and most recent HbA1c above. * Appears patient received 12 mg IV dexamethasone total intraoperatively. Now ordered 6 mg IV every 8 hours x 3 doses. * Ordered a clear liquid diet. Patient did not eat yet postoperatively. * Given large steroid dose, will stress patient's home basal dose by 50% today. Expect insulin requirements to be high over the next 48-72 hours given steroid dose. Novolog will be started based on weight/stress of 3.5. Will add overnight checks for the first night. Reassess basal dose in the AM. PLAN FOR INPATIENT GLYCEMIC CONTROL: * Hold outpatient oral diabetes medications * Basal insulin * Lantus 35 units SC x 1 * Reassess basal in AM * Bolus insulin * NovoLog per scale ACHS or Q6hrs while NPO * Goal Range: Low 110 mg/dL - High 140 mg/dL * Correction Factor: 15 mg/dL/unit * Nutritional / Prandial insulin per carb ratio of 1 unit per 5 grams CHO consumed
[2023-01-10] MEDS: ceFAZolin 2000MG 2,000 MG/15 ML SYR IV SCH ×2 (17:25→23:49)
[2023-01-10] MEDS: dexAMETHasone 6 MG in SYRINGE 0 ML IV SCH (18:20)
[2023-01-10] MEDS ORDERED: METOPROLOL SUCC 50MG EXT REL TAB PO SCH (21:00)
[2023-01-10] MEDS ORDERED: SIMVASTATIN 20 MG TAB PO SCH (21:00)
[2023-01-10] MEDS ORDERED: DOCUSATE SODIUM/SENNA 50/8.6MG TAB PO SCH (21:00)
[2023-01-11] MEDS: INSULIN ASPART PER UNIT CHARGE SC SCH ×4 (00:35→12:18)
[2023-01-11] MEDS: SODIUM CHLORIDE 0.9% 1000ML 1,000 ML IV SCH (00:45)
[2023-01-11] MEDS: dexAMETHasone 6 MG in SYRINGE 0 ML IV SCH ×2 (01:50→09:24)
[2023-01-11] MEDS: POLYETHYLENE (MIRALAX) 17 GM PACK PO SCH ×2 (05:42→12:16)
[2023-01-11 07:03] LABS: Hematocrit (blood only) 42.3 % (42.0-52.0); Hemoglobin 14.1 g/dl (14.0-18.0); Mean Corpuscular Hemoglobin 26.8 pg (25.0-34.0); Mean Corpuscular Hgb Conc 33.3 g/dL (32.0-36.0); Mean Corpuscular Volume 80.4 fL (80.0-100.0); Mean Platelet Volume 10.2 fL (9.4-12.4); Platelet Count 258 K/uL (130-400); RDW Coefficient of Variation 13.2 % (11.5-14.5); RDW Standard Deviation 38.5 fL (36.4-46.3); Red Blood Count 5.26 M/uL (4.70-6.10); White Blood Count 21.28 K/ul (4.8-10.8)
[2023-01-11 07:19] LABS: BUN Creatinine Ratio 35.5 (10-20); Calcium 8.7 mg/dl (8.6-10.3); Creatinine Clr Calc Pharmacy 119.9 ml/min; Est GFR (African American) 115.7 ml/min; Est GFR (Non-African American) 99.8 ml/min; Potassium 3.9 mmol/L (3.5-5.1)
[2023-01-11] MEDS ORDERED: LANTUS PER UNIT CHARGE SC ONE (07:30)
[2023-01-11 07:49] LABS: Estimated Average Glucose 154 mg/dl
[2023-01-11] MEDS ORDERED: POTASSIUM CHLORIDE 10 MEQ TABCR PO SCH (09:00)
[2023-01-11] MEDS ORDERED: EMPAGLIFLOZIN 25 MG TAB PO SCH (09:00)
[2023-01-11] MEDS ORDERED: METOPROLOL SUCC 50MG EXT REL TAB PO SCH (09:00)
--- NOTE | 2023-01-11 09:28 | Discharge Summary ---
Date of Service January 11, 2023 Admission HPI Per Admitting Provider This is a 72-year-old male who presents with chronic persistent neck and arm pain after failing extensive course of nonoperative care is here for surgical invention. Discharge Data Consultations 01/10/23 13:14 Consult Hospitalist Routine Procedures Performed Operation Date: 01/10/23 07:45 Actual Procedures p C3-C4 and C6-C7 Anterior Cervical Discectomy and Fusion, Spinal Cord Monitoring(Not Applicable) - Robb Mejía DO s C4-C6 Hardware Removal(Not Applicable) - Robb Mejía DO Hospital Course (1) Cervical stenosis of spinal canal: Patient is a pleasant 72-year-old male with history physical examination radiographic images consistent with above-mentioned diagnosis. For this reason was brought to the operating room on 01/10/2023 and undergone removal of anterior plate and screw a cervical discectomy at C3-4 and C6-7 and continuation of fusion from C3-C7. He left the operating room with a TREASURE drain and dressing in place was transferred to the PACU in stable condition. He was then transferred to the orthopedic floor. Throughout his hospital course his calves remained supple nontender his abdomen remained supple nontender. His safe relief in terms of his pain and symptoms. On postoperative day 1 he was deemed safe for home discharge. They are to DC his TREASURE drain and change his dressing before discharge. He was lift nothing heavier than 5 to 7 pounds. Need to wear his hard collar when he was up and walking but may remove it for meals and showers. For follow-up care is to be seen in the office in approximately 2 weeks or sooner if he developed any increased drainage fevers chills or increased pain.
[2023-01-11] MEDS ORDERED: DIGOXIN 0.25 MG TAB PO SCH (16:00)
== END 2023-01-11 12:46 | disposition home or self-care (01) ==
LOC: ASU 06:21 → PACUINP 10:28 → INTOOBSV 10:28 → 3E 13:53